=== PATIENT | female | born 1950 | race Caucasian/White ===

== ENCOUNTER → 2018-02-26 | Day surgery (SDC) | payer BC ==
[~2018-02-26] MED LIST: FENTANYL CITRATE/PF 100MCG/2 ML INJ ONE; MIDAZOLAM HCL 2 MG/2 ML VIAL ONE; OR PHACO EYE KIT ONE; PREOP PHACO EYE KIT ONE; SYNTHROID100 MCG PO; SYNTHROID112 MCG PO
--- OUTSIDE RECORDS SUMMARY | 2018-02-26 14:47 | XMS REPORT | Clinical Summary ---
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 Name Role Phone Ky Shankar MD PCP Allergies Active Allergy Reactions Severity Noted Date Comments Aminoglycosides Hives, Rash Low 02/22/2017 Clindamycin Hcl Rash Low 10/17/2016 Clindamycin 03/09/2017 ALL Clindamycin FAMILY Codeine 10/17/2016 Latex Rash Medium 12/27/2016 Levofloxacin Hives, Rash Low 06/19/2017 Levothyroxine 03/09/2017 CAN ONLY TAKE SYNTHROID no generic Macrolide Antibiotics Hives, Rash Low 02/22/2017 macrolide family Other Other (See Comments) 02/22/2017 Pt sts allergic to nuclear medicine contrast only, reaction: small hard bumps all over her body Tetracyclines 06/19/2017 Tetracyclines family Current Medications Prescription Sig. Disp. Refills Start End Date Status Date sitaGLIPtin () 100 Take 100 mg by mouth Active MG tablet daily. levothyroxine (SYNTHROID) Take 100 mcg by mouth Active 100 mcg tablet daily. Name brand only levothyroxine (SYNTHROID) Take 112 mcg by mouth Active 112 mcg tablet every morning. Name brand only azelastine-fluticasone 1 spray by Each Nare Active (DYMISTA) 137-50 route 2 (two) times a mcg/spray day. spray,non-aerosol nystatin (MYCOSTATIN) SWISH AND SWALLOW SIX (6) 0 09/26/19 Active 100,000 unit/mL MLS BY MOUTH FOUR TIMES A 18 suspension DAY UNTIL ALL TAKEN. levothyroxine (SYNTHROID, Take 112 mcg by mouth 06/19/19 Discontin LEVOXYL) 112 mcg tablet every other day. 18 ued levothyroxine (SYNTHROID, Take 100 mcg by mouth 06/19/19 Discontin LEVOXYL) 100 mcg tablet every other day. 18 ued UNABLE TO FIND Med Name:azelastime nasal 06/21/19 Discontin spray 18 ued cefdinir (OMNICEF) 300 MG Take 1 capsule (300 mg 10 capsule 0 03/08/20 03/13/20 capsule total) by mouth 2 (two) 17 17 times a day for 5 days. ondansetron (ZOFRAN, Take 1 tablet (8 mg 20 tablet 1 03/09/20 04/08/20 HYDROCHLORIDE,) 8 MG total) by mouth every 8 17 17 tabletIndications: (eight) hours as needed Malignant neoplasm of for nausea or vomiting upper-outer quadrant of for up to 30 days. right breast in female, estrogen receptor positive (HCC) prochlorperazine Take 1 tablet (10 mg 30 tablet 1 03/09/20 04/08/20 (COMPAZINE) 10 MG total) by mouth every 6 17 17 tabletIndications: (six) hours as needed for Malignant neoplasm of nausea or vomiting for up upper-outer quadrant of to 30 days. right breast in female, estrogen receptor positive (HCC) lidocaine-prilocaine Apply to port 1 hour 1 each 0 03/09/20 08/08/19 Discontin (EMLA) 2.5-2.5 % prior to chemo. 17 18 ued creamIndications: Malignant neoplasm of upper-outer quadrant of right breast in female, estrogen receptor positive (HCC) miscellaneous medical Wear wig daily 1 each 0 03/27/20 03/27/20 Discontin supply miscIndications: 17 17 ued Malignant neoplasm of female breast, unspecified estrogen receptor status, unspecified laterality, unspecified site of breast (HCC) diphenoxylate-atropine Take 1-2 tabs every 6 30 tablet 2 03/27/20 04/03/20 (LOMOTIL) 2.5-0.025 mg hours PRN for diarrhea 17 17 per tablet miscellaneous medical Wear wig daily 1 each 0 03/27/20 04/02/20 Discontin supply miscIndications: 17 17 ued Malignant neoplasm of female breast, unspecified estrogen receptor status, unspecified laterality, unspecified site of breast (HCC) acetaminophen-codeine Take 1 tablet by mouth 20 tablet 0 04/02/20 04/12/20 (TYLENOL WITH CODEINE #3) every 4 (four) hours as 17 17 300-30 mg per tablet needed for moderate pain for up to 10 days. lidocaine Insert 1 application into 1 Tube 11 04/25/20 05/09/20 HCl-hydrocortison ac the rectum 2 (two) times 17 17 3-0.5 % creamIndications: a day as needed (rectal Proctalgia pain) for up to 14 days. omeprazole (PriLOSEC) 40 Take 1 capsule (40 mg 30 capsule 11 04/25/20 06/19/19 Discontin MG capsuleIndications: total) by mouth daily. 17 18 ued Epigastric pain amoxicillin (AMOXIL) 500 02/28/20 05/24/19 Discontin MG capsule 17 18 ued lidocaine-prilocaine 03/28/20 05/24/19 Discontin (EMLA) 2.5-2.5 % cream 17 18 ued hydrocortisone Insert into the rectum 2 30 g 1 05/16/19 06/15/19 (ANUSOL-HC) 2.5 % rectal (two) times a day for 30 18 18 creamIndications: Rectal days. Apply to rectal irritation area 2 time a day. oseltamivir (TAMIFLU) 75 Take 1 capsule (75 mg 10 capsule 0 05/18/19 05/24/19 Discontin MG capsuleIndications: total) by mouth 2 (two) 18 18 ued Flu times a day for 5 days. azithromycin (ZITHROMAX Take 2 tablets the first 6 tablet 0 06/15/19 06/19/19 Discontin Z-ERA) 250 MG day, then 1 tablet daily 18 18 ued tabletIndications: for 4 days. Bronchitis traMADol (ULTRAM) 50 mg Take 1 tablet (50 mg 30 tablet 0 06/22/19 07/02/19 tablet total) by mouth every 6 18 18 (six) hours as needed for moderate pain for up to 10 days. acetaminophen (TYLENOL) Take 2 tablets (1,000 mg 180 tablet 0 07/08/19 07/08/19 Discontin 500 MG tablet total) by mouth every 8 18 18 ued (eight) hours for 30 days. gabapentin (NEURONTIN) Take 1 capsule (300 mg 90 capsule 0 07/08/19 07/08/19 Discontin 300 mg capsule total) by mouth 3 (three) 18 18 ued times a day for 30 days. acetaminophen (TYLENOL) Take 2 tablets (1,000 mg 30 tablet 0 07/08/19 07/14/19 500 MG tablet total) by mouth every 8 18 18 (eight) hours for 5 days. gabapentin (NEURONTIN) Take 1 capsule (300 mg 21 capsule 0 07/08/19 07/16/19 300 mg capsule total) by mouth 3 (three) 18 18 times a day for 7 days. nitroglycerin 0.4 % (w/w) Insert 375 mg into the 30 g 0 08/08/19 08/29/19 ointmentIndications: Anal rectum 2 (two) times a 18 18 fissure day for 21 days. anastrozole (ARIMIDEX) 1 Take 1 tablet (1 mg 30 tablet 3 12/04/19 01/03/20 mg chemo tablet total) by mouth daily for 18 18 30 days. Active Problems Problem Noted Date Breast cancer screening 12/26/2017 Heart failure, ACC/AHA stage A 05/24/2017 Mass of lung 03/16/2017 Smoking 02/15/2017 Malignant neoplasm of upper-outer quadrant of right female breast (HCC) 12/27/2016 Mass of right side of neck 12/19/2016 Golfer's elbow 11/15/2016 Lateral epicondylitis of right elbow 03/22/2016 Ganglion cyst of wrist 03/22/2016 Primary osteoarthritis of left wrist 03/22/2016 Lung cancer (HCC) Encounters Date Type Specialty Care Team Description 02/12/2018 Oncology Oncology Susi Connors, LEO Survivorship 02/06/2018 Telephone Oncology Daniel Cullen MD 01/11/2018 Telephone Oncology Daniel Cullen MD 12/27/2017 Oncology Radiology Aminta Lozada, LEO Survivorship 12/26/2017 Office Visit General Surgery Elma Hernandes, Malignant neoplasm of MD upper-outer quadrant of right breast in female, estrogen receptor positive (Primary Dx); Breast cancer screening 12/26/2017 [facility] Radiology Elma Hernandes, Malignant neoplasm of Encounter upper-outer quadrant of right breast in female, estrogen receptor positive 12/26/2017 [facility] Radiology Elma Hernandes, Malignant neoplasm of Encounter MD upper-outer quadrant of right breast in female, estrogen receptor positive 12/07/2017 Orders Only Oncology Carol Ga MD Osteoporosis screening (Primary Dx) 12/04/2017 [facility] Radiation Oncology Dayne Ya MD Encounter 12/03/2017 Office Visit Oncology Carol Ga MD Breast cancer, stage 2, right (Primary Dx) 12/03/2017 Oncology Oncology Susi Connors, RN Survivorship 11/30/2017 Office Visit Oncology Daniel Cullen Malignant neoplasm of MD lower lobe of right lung (Primary Dx) 11/30/2017 Hospital Radiology Daniel Cullen, Cancer of lower lobe of Encounter MD right lung 11/30/2017 Orders Only Oncology Amena Moralez MA Cancer of lower lobe of right lung (Primary Dx) 11/12/2017 Orders Only Oncology Amena Moralez MA Cancer of lower lobe of right lung (Primary Dx) 11/09/2017 Telephone Oncology Daniel Cullen MD 11/05/2017 Procedure visit General Surgery Elma Hernandes, Malignant neoplasm of MD upper-outer quadrant of right breast in female, estrogen receptor positive (Primary Dx) 11/05/2017 Transcribe Access Elma Hernandes, Malignant neoplasm of Orders MD upper-outer quadrant of right breast in female, estrogen receptor positive (Primary Dx) 10/29/2017 Telephone General Surgery Martha Latif RN 10/29/2017 Documentation Oncology Neisha Tenorio RN 10/25/2017 Telephone Oncology Daniel Cullen MD 10/22/2017 [facility] Radiology Carol Ga MD Swelling in chest Encounter 10/19/2017 Telephone General Surgery Martha Latif, LEO 10/17/2017 Orders Only Oncology Carol Ga MD Neck pain (Primary Dx) 10/16/2017 Office Visit Oncology Carol Ga MD Swelling in chest (Primary Dx) 10/16/2017 Orders Only Oncology Cedric Dial, PharmD 10/12/2017 [facility] Radiation Oncology Dayne Ya MD Encounter 10/10/2017 Infusion Oncology Carol Ga MD Breast cancer, stage 2, right (Primary Dx); Malignant neoplasm of upper-outer quadrant of right breast in female, estrogen receptor positive 10/10/2017 Orders Only Oncology Carol Ga MD 10/09/2017 Office Visit Oncology Daniel Cullen Primary malignant MD neoplasm of upper outer quadrant of right breast (Primary Dx) 10/05/2017 Telephone Oncology Daniel Cullen MD 10/03/2017 Orders Only Oncology Charmaine Maurer, PharmD 10/02/2017 Documentation Oncology Neisha Tenorio RN 09/26/2017 Office Visit Oncology Carol Ga MD Malignant neoplasm of upper-outer quadrant of right breast in female, estrogen receptor positive (Primary Dx) 09/26/2017 Orders Only Oncology Carol Ga MD Breast cancer, stage 2, right; Malignant neoplasm of upper-outer quadrant of right breast in female, estrogen receptor positive 09/26/2017 Orders Only Oncology Charmaine Maurer, PharmD 09/25/2017 Office Visit Cardiology Deanne Santoro MD Heart failure, ACC/AHA stage A (Primary Dx); Breast cancer, stage 2, right 09/21/2017 Orders Only Cardiology Azra Shay MA Malignant neoplasm of upper-outer quadrant of right breast in female, estrogen receptor positive (Primary Dx); Smoking; Heart failure, ACC/AHA stage A 09/19/2017 Telephone Oncology Daniel Cullen MD 09/18/2017 Emergency Emergency Medicine Darwin Rodas MD Problem with vascular access (Primary Dx) 09/18/2017 Orders Only Oncology Neisha Tenorio RN Malignant neoplasm of female breast, unspecified estrogen receptor status, unspecified laterality, unspecified site of breast (Primary Dx) 09/18/2017 Documentation Oncology Neisha Tenorio RN 09/17/2017 Office Visit General Surgery Elma Hernandes, Malignant neoplasm of MD upper-outer quadrant of right breast in female, estrogen receptor positive (Primary Dx) 09/12/2017 Infusion Oncology Carol Ga MD Breast cancer, stage 2, right (Primary Dx); Malignant neoplasm of upper-outer quadrant of right breast in female, estrogen receptor positive 09/12/2017 Oncology Oncology Susi Connors RN Survivorship 09/11/2017 [facility] Radiation Oncology Dayne Ya MD - Encounter 09/12/2017 09/10/2017 Telephone Gastroenterology Chantal Devine LVN 09/06/2017 Documentation Oncology Neisha Tenorio, LEO 09/04/2017 Office Visit Oncology Carol Ga MD Encounter for antineoplastic chemotherapy (Primary Dx); Malignant neoplasm of upper-outer quadrant of right breast in female, estrogen receptor positive 09/04/2017 Orders Only Oncology Carol Ga MD Breast cancer, stage 2, right; Malignant neoplasm of upper-outer quadrant of right breast in female, estrogen receptor positive 08/21/2017 Hospital Radiation Oncology Dayne Ya MD - Encounter 08/22/2017 08/14/2017 Telephone Oncology Daniel Cullen MD 08/07/2017 Office Visit Gastroenterology Micah Love MD Proctalgia (Primary Dx); Anal fissure 08/07/2017 Office Visit Cardiothoracic Surgery Camilo Berg MD Surgery follow-up examination (Primary Dx) 08/07/2017 Office Visit Oncology Daniel Cullen, Primary lung cancer, MD right (Primary Dx) 07/20/2017 Office Visit Cardiothoracic Surgery Ainsley Charles, 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 (Primary Dx) 07/16/2017 Telephone Cardiothoracic Surgery Sary Angel MA 07/12/2017 Telephone Oncology Susi Connors RN 07/06/2017 Hospital Cardiology Camilo Berg MD Malignant neoplasm of - Encounter lower lobe, right 07/08/2017 bronchus or lung (CODE) 07/06/2017 Anesthesia Cardiothoracic Surgery Siobhan Cavazos Event 07/06/2017 Procedure Pass Cardiothoracic Surgery 07/06/2017 Surgery Cardiothoracic Surgery Camilo Berg MD ROBOTIC ASSISTED THORACOSCOPIC RIGHT LOWER LOBE LOBECTOMY, MEDIASTINAL LYMPH NODE DISSECTION 07/03/2017 Lab Lab Camilo Berg MD Malignant neoplasm of lung, unspecified laterality, unspecified part of lung; Pre-operative laboratory examination 07/03/2017 Office Visit Oncology Carol Ga MD Breast cancer, stage 2, right (Primary Dx) 07/03/2017 Transcribe Cardiothoracic Surgery Camilo Berg MD Malignant neoplasm of Orders lung, unspecified laterality, unspecified part of lung (Primary Dx); Pre-operative laboratory examination 06/26/2017 Office Visit General Surgery Elma Hernandes, Malignant neoplasm of MD upper-outer quadrant of right breast in female, estrogen receptor positive (Primary Dx) 06/26/2017 Telephone Oncology Susi Connors RN 06/22/2017 [facility] Radiology Elma Hernandes, Breast cancer, stage 2, Encounter MD right 06/22/2017 Hospital General Surgery Elma Hernandes, Mass of right breast; Encounter MD Breast cancer, stage 2, right 06/22/2017 Procedure Pass General Surgery 06/22/2017 Surgery General Surgery Elma Hernandes, Central Mastectomy RIGHT MD 06/21/2017 Pre-Admit Pre-Admission Testing Elma Hernandes, Malignant neoplasm of Testing MD lower lobe of right lung; Appointment Pre-op testing 06/21/2017 Anesthesia General Surgery Fadia Greenberg, SALT GRINDER-C Event 06/19/2017 [facility] Procedural Cardiology Deanne Santoro MD Mass of lung; Encounter Malignant neoplasm of lower lobe of right lung; Mass of right side of neck; Malignant neoplasm of upper-outer quadrant of right breast in female, estrogen receptor positive; Heart failure, ACC/AHA stage A; Smoking 06/19/2017 Office Visit Cardiothoracic Surgery Camilo Berg MD Malignant neoplasm of lower lobe of right lung (Primary Dx); Pre-op testing 06/15/2017 Orders Only Oncology Nalini Walters RN Bronchitis (Primary Dx) 06/15/2017 Telephone Oncology Daniel Cullen MD 06/14/2017 Orders Only Cardiology Azra Shay MA Mass of lung (Primary Dx); Malignant neoplasm of lower lobe of right lung; Mass of right side of neck; Malignant neoplasm of upper-outer quadrant of right breast in female, estrogen receptor positive; Heart failure, ACC/AHA stage A; Smoking 06/13/2017 Orders Only Cardiothoracic Surgery Morena Baig MD 06/12/2017 [facility] Radiation Oncology Dayne Ya MD - Encounter 06/13/2017 06/12/2017 Telephone Oncology Daniel Cullen MD 06/12/2017 Orders Only Cardiology Azra Shay MA Mass of lung (Primary Dx); Malignant neoplasm of lower lobe of right lung; Smoking; Heart failure, ACC/AHA stage A 06/11/2017 Prep for General Surgery Elma Hernandes, Breast cancer, stage 2, Surgery right (Primary Dx) 06/06/2017 Telephone Oncology Daniel Cullen MD 06/05/2017 Office Visit Cardiothoracic Surgery Camilo Berg MD Malignant neoplasm of lower lobe of right lung (Primary Dx) 06/04/2017 Office Visit General Surgery Elma Hernandes, Malignant neoplasm of MD upper-outer quadrant of right breast in female, estrogen receptor positive (Primary Dx) 06/04/2017 Infusion Oncology Carol Ga MD Malignant neoplasm of upper-outer quadrant of right breast in female, estrogen receptor positive (Primary Dx) 06/01/2017 Nurse Only Oncology Carol Ga MD Malignant neoplasm of upper-outer quadrant of right breast in female, estrogen receptor positive (Primary Dx) 05/28/2017 Office Visit Oncology Daniel Cullen Malignant neoplasm of MD lower lobe of right lung (Primary Dx) 05/28/2017 Nurse Only Oncology Carol Ga MD Malignant neoplasm of Daniel Cullen, upper-outer quadrant of MD right breast in female, estrogen receptor positive (Primary Dx) 05/25/2017 Telephone Cardiothoracic Surgery Aruna Cano MA 05/24/2017 Office Visit Cardiology Deanne Santoro MD Heart failure, ACC/AHA stage A (Primary Dx); Mass of lung; Smoking; Malignant neoplasm of upper-outer quadrant of right breast in female, estrogen receptor positive; Malignant neoplasm of breast in female, estrogen receptor negative, unspecified laterality, unspecified site of breast 05/24/2017 Orders Only General Surgery Elma Hernandes, Breast cancer, stage 2, MD unspecified laterality (Primary Dx) 05/23/2017 Telephone Oncology Daniel Cullen MD 05/22/2017 Office Visit Oncology Carol Ga MD Malignant neoplasm of upper-outer quadrant of right breast in female, estrogen receptor negative (Primary Dx) 05/22/2017 Infusion Oncology Carol Ga MD Malignant neoplasm of upper-outer quadrant of right breast in female, estrogen receptor positive (Primary Dx) 05/22/2017 Orders Only Oncology Carol Ga MD Malignant neoplasm of upper-outer quadrant of right breast in female, estrogen receptor positive 05/18/2017 Orders Only Oncology Nalini Walters RN Flu (Primary Dx) 05/18/2017 Telephone Oncology Daniel Cullen MD 05/16/2017 Orders Only Oncology Nalini Walters RN Rectal irritation (Primary Dx) 05/11/2017 [facility] Radiology Daniel Cullen, Malignant neoplasm of Encounter MD nipple of right female breast 05/10/2017 Telephone Oncology Daniel Cullen MD 05/10/2017 Transcribe Access Daniel Cullen, Malignant neoplasm of Orders MD nipple of right female breast (Primary Dx) 05/10/2017 Orders Only Oncology Amena Moralez MA 05/09/2017 Office Visit Oncology Daniel Cullen Malignant neoplasm of MD lower lobe of right lung (Primary Dx) 05/04/2017 [facility] Radiology Daniel Cullen, Squamous cell carcinoma Encounter MD of bronchus in right lower lobe 05/04/2017 Telephone Oncology Daniel Cullen MD 05/02/2017 Nurse Only Oncology Caorl Ga MD Malignant neoplasm of upper-outer quadrant of right breast in female, estrogen receptor positive (Primary Dx) 05/02/2017 Telephone Oncology Daniel Cullen MD 05/01/2017 Office Visit Oncology Carol Ga MD Malignant neoplasm of upper-outer quadrant of right breast in female, estrogen receptor negative (Primary Dx) 05/01/2017 Infusion Oncology Carol Ga MD Malignant neoplasm of upper-outer quadrant of right breast in female, estrogen receptor positive (Primary Dx); Malignant neoplasm of upper-outer quadrant of right breast in female, estrogen receptor negative 05/01/2017 Orders Only Oncology Amena Moralez MA Squamous cell carcinoma of bronchus in right lower lobe (Primary Dx) 05/01/2017 Orders Only Oncology Lauren Mata MA 05/01/2017 Orders Only Oncology Carol Ga MD Malignant neoplasm of upper-outer quadrant of right breast in female, estrogen receptor positive 04/25/2017 Office Visit Gastroenterology Micah Love MD Proctalgia (Primary Dx); Epigastric pain 04/17/2017 Documentation Oncology Neisha Tenorio RN 04/11/2017 Telephone Oncology Susi Connors, LEO 04/10/2017 Office Visit Oncology Daniel Cullen, Malignant neoplasm of MD lower lobe of right lung (Primary Dx) 04/10/2017 Infusion Oncology Carol Ga MD Malignant neoplasm of Tori Guillen RN upper-outer quadrant of right breast in female, estrogen receptor positive (Primary Dx) 04/10/2017 Orders Only Oncology Amena Moralez MA Malignant neoplasm involving both nipple and areola of right breast in female, unspecified estrogen receptor status (Primary Dx) 04/10/2017 Oncology Oncology Susi Connors, RN Survivorship 04/09/2017 Documentation Oncology Neisha Tenorio RN 04/09/2017 Orders Only Oncology Reinaldo Cheema, PharmD 04/09/2017 Orders Only Oncology Carol Ga MD 04/09/2017 Orders Only Oncology Carol Ga MD Malignant neoplasm of upper-outer quadrant of right breast in female, estrogen receptor positive 04/03/2017 Documentation Oncology Neisha Tenorio RN 04/02/2017 [facility] General Surgery Elma Hernandes, Encounter 04/02/2017 Procedure Pass General Surgery 04/02/2017 Surgery General Surgery Elma Hernandes, INSERTION, IMPLANTABLE MD VENOUS ACCESS DEVICE WITH RESERVOIR 04/01/2017 Anesthesia General Surgery Iftikhar Parr, Gray AYALA 03/29/2017 Orders Only Oncology Carmelina Lund, PharmD 03/29/2017 Orders Only Oncology Carol Ga MD 03/27/2017 Office Visit Oncology Daniel Cullen, Primary lung cancer, MD right (Primary Dx) 03/27/2017 Hospital Radiology Carol Ga MD Malignant neoplasm of Encounter female breast, unspecified estrogen receptor status, unspecified laterality, unspecified site of breast 03/27/2017 Office Visit Oncology Carol Ga MD Malignant neoplasm of female breast, unspecified estrogen receptor status, unspecified laterality, unspecified site of breast (Primary Dx) 03/27/2017 Orders Only Oncology Neisha Tenorio RN 03/23/2017 Prep for General Surgery Elma Hernandes, Malignant neoplasm of Surgery MD breast in female, estrogen receptor negative, unspecified laterality, unspecified site of breast (Primary Dx) 03/23/2017 Orders Only General Surgery Elma Hernandes MD 03/23/2017 Procedure Pass General Surgery 03/21/2017 Telephone Oncology Carol Ga MD 03/16/2017 Procedure Pass Radiology 03/16/2017 Orders Only Oncology Carol Ga MD Malignant neoplasm of female breast, unspecified estrogen receptor status, unspecified laterality, unspecified site of breast (Primary Dx) 03/16/2017 Documentation Oncology Neisha Tenorio, LEO 03/16/2017 Telephone General Surgery Martha Latif RN 03/13/2017 Office Visit Oncology Carol Ga MD Malignant neoplasm of upper-outer quadrant of right breast in female, estrogen receptor negative (Primary Dx) 03/13/2017 Oncology Oncology Susi Connors, LEO Survivorship 03/09/2017 Prep for General Surgery Elma Hernandes, Malignant neoplasm of Surgery MD upper-outer quadrant of right breast in female, estrogen receptor negative (Primary Dx) 03/09/2017 Orders Only Oncology Neisha Tenorio RN 03/09/2017 Telephone Oncology Carol Ga MD 03/09/2017 Orders Only Oncology Carmelina Lund, Amol Malignant neoplasm of upper-outer quadrant of right breast in female, estrogen receptor positive (Primary Dx) 03/08/2017 Office Visit Oncology Carol Ga MD Malignant neoplasm of upper-outer quadrant of right breast in female, estrogen receptor positive (Primary Dx) 02/26/2017 Telephone Oncology Carol Ga MD after 02/25/2017 Family History Medical History Relation Name Comments No Known Problems Brother No Known Problems Mother Relation Name Status Comments Brother Alive Father asbestos exposure Mother Social History Tobacco Use Types Packs/Day Years Used Date Former Smoker Cigarettes, Electronic 1 50 Quit: 06/07/2017 Cigarettes Smokeless Tobacco: Never Used Tobacco Cessation: Counseling Given: Yes Comments: pt trying to wean from cigarrettes and alternating with e cigarettes Alcohol Use Drinks/Week oz/Week Comments No Sex Assigned at Date Recorded Not on file Last Filed Vital Signs Vital Sign Reading Time Taken Blood Pressure 87/60 12/26/2017 2:09 PM CDT Pulse 85 12/26/2017 2:09 PM CDT Temperature 37 C (98.6 F) 12/26/2017 2:09 PM CDT Respiratory Rate 15 12/26/2017 2:09 PM CDT Oxygen Saturation 99% 12/26/2017 2:09 PM CDT Inhaled Oxygen - - Concentration Weight 57.2 kg (126 lb) 12/26/2017 2:09 PM CDT Height 157.5 cm (5' 2") 12/26/2017 2:09 PM CDT Body Mass Index 23.05 12/26/2017 2:09 PM CDT Plan of Treatment Date Type Specialty Care Team Description 03/21/2018 Appointment Radiology Daniel Cullen MD [address] [id number] 03/25/2018 Office Visit Oncology Daniel Cullen MD [address] [place] [id number] 01/08/2019 Office Visit [place] [address] [facility] [address] [place] [address] [id number] Health Maintenance Due Date Last Done Comments SHINGRIX VACCINE (#1) 2000 ZOSTER VACCINE 2010 PNEUMOCOCCAL 09/10/2015 POLYSACCHARIDE VACCINE AGE 65 AND OVER PNEUMOCOCCAL-13 09/10/2015 INFLUENZA VACCINE 12/12/2017 BREAST CANCER SCREENING 12/27/2019 12/26/2017, 12/26/2017, 12/19/2016, Additional history exists COLON CANCER SCREENING 10/31/2020 11/01/2015 Implants Implanted Type Area Senior Attorney Device Expiration Model / Identifier Date Serial / Lot Port [id number] Smart Port W/ Dtchd Implantabl N/A: N/A [employer] 11/11/2019 [id number] 0.4ml 6.6fr 55cm 1.4x2.2mm - [employer] / [id number] Ports or / Implanted: Qty: 1 on 04/02/2017 by [employer] [id number] Elma Hernandes MD s Procedures Procedure Name Priority Date/Time Associated Diagnosis Comments MAMMO DIAGNOSTIC W CAD Routine 12/26/2017 Malignant neoplasm of Results for this BILATERAL 2:56 PM CDT upper-outer quadrant of procedure are in the right breast in female, results section. estrogen receptor positive US BREAST COMPLETE Routine 12/26/2017 Malignant neoplasm of Results for this BILATERAL 1:45 PM CDT upper-outer quadrant of procedure are in the right breast in female, results section. estrogen receptor positive CT CHEST W CONTRAST Routine 11/30/2017 Cancer of lower lobe of Results for this 12:13 PM CDT right lung procedure are in the results section. ESTIMATED GFR Routine 11/30/2017 Results for this 11:13 AM CDT procedure are in the results section. POC CREATININE Routine 11/30/2017 Results for this 11:13 AM CDT procedure are in the results section. IR PORT EVALUATION Routine 10/22/2017 Swelling in chest Results for this 11:51 AM CDT procedure are in the results section. POC CREATININE Routine 10/22/2017 Results for this 10:26 AM CDT procedure are in the results section. ECHOCARDIOGRAM 2D Routine 09/25/2017 Results for this COMPLETE W MMODE SPECTRAL 2:46 PM CDT procedure are in the COLOR DOPPLER ([id number]) results section. US DUPLEX VENOUS UPPER STAT 09/18/2017 Results for this EXTREMITY LEFT 10:08 PM CDT procedure are in the results section. TROPONIN, I-STAT Timed 09/18/2017 Results for this 10:05 PM CDT procedure are in the results section. LACTIC ACID LEVEL, SEPSIS Timed 09/18/2017 Results for this - NOW AND REPEAT 2X EVERY 10:05 PM CDT procedure are in the 3 HOURS results section. XR CHEST 2 VW STAT 09/18/2017 Results for this 7:09 PM CDT procedure are in the results section. ZZESTIMATED GFR STAT 09/18/2017 Results for this 6:07 PM CDT procedure are in the results section. B NATRIURETIC PEPTIDE STAT 09/18/2017 Results for this 6:07 PM CDT procedure are in the results section. TROPONIN, I-STAT STAT 09/18/2017 Results for this 6:07 PM CDT procedure are in the results section. LACTIC ACID LEVEL, SEPSIS STAT 09/18/2017 Results for this - NOW AND REPEAT 2X EVERY 6:07 PM CDT procedure are in the 3 HOURS results section. HC COMPLETE BLD COUNT STAT 09/18/2017 Results for this W/AUTO DIFF 6:07 PM CDT procedure are in the results section. COMPREHENSIVE METABOLIC STAT 09/18/2017 Results for this PANEL 6:07 PM CDT procedure are in the results section. BLOOD CULTURE, AEROBIC & Routine 09/18/2017 Results for this ANAEROBIC 6:07 PM CDT procedure are in the results section. XR CHEST 1 VW PORTABLE STAT 07/08/2017 Results for this 2:21 PM CLOTHES SEPARATOR procedure are in the results section. XR CHEST 1 VW PORTABLE Routine 07/08/2017 Results for this 12:00 PM CLOTHES SEPARATOR procedure are in the results section. XR CHEST 1 VW PORTABLE Routine 07/08/2017 Results for this 8:20 AM CLOTHES SEPARATOR procedure are in the results section. ZZESTIMATED GFR Routine 07/08/2017 Results for this 8:15 AM CLOTHES SEPARATOR procedure are in the results section. CBC HEMOGRAM Routine 07/08/2017 Results for this 8:15 AM CLOTHES SEPARATOR procedure are in the results section. BASIC METABOLIC PANEL Routine 07/08/2017 Results for this 8:15 AM CLOTHES SEPARATOR procedure are in the results section. XR CHEST 1 VW PORTABLE Routine 07/07/2017 Results for this 10:02 AM CLOTHES SEPARATOR procedure are in the results section. HC COMPLETE BLD COUNT Routine 07/07/2017 Results for this W/AUTO DIFF 5:35 AM CLOTHES SEPARATOR procedure are in the results section. ZZESTIMATED GFR Routine 07/07/2017 Results for this 4:00 AM CLOTHES SEPARATOR procedure are in the results section. BASIC METABOLIC PANEL Routine 07/07/2017 Results for this 4:00 AM CLOTHES SEPARATOR procedure are in the results section. XR CHEST 1 VW PORTABLE STAT 07/06/2017 Results for this 2:33 PM CLOTHES SEPARATOR procedure are in the results section. ZZESTIMATED GFR STAT 07/06/2017 Results for this 1:12 PM CLOTHES SEPARATOR procedure are in the results section. BASIC METABOLIC PANEL STAT 07/06/2017 Results for this 1:12 PM CLOTHES SEPARATOR procedure are in the results section. HC COMPLETE BLD COUNT STAT 07/06/2017 Results for this W/AUTO DIFF 1:12 PM CLOTHES SEPARATOR procedure are in the results section. SURGICAL PATHOLOGY Routine 07/06/2017 Results for this REQUEST 11:42 AM CLOTHES SEPARATOR procedure are in the results section. SURGICAL PATHOLOGY Routine 07/06/2017 Results for this REQUEST 11:42 AM CLOTHES SEPARATOR procedure are in the results section. ARTERIAL BLOOD GAS, STAT 07/06/2017 Results for this CORRECTED 11:00 AM CLOTHES SEPARATOR procedure are in the results section. SODIUM LEVEL, SYRINGE STAT 07/06/2017 Results for this 11:00 AM CLOTHES SEPARATOR procedure are in the results section. HEMOGLOBIN, SYRINGE STAT 07/06/2017 Results for this 11:00 AM CLOTHES SEPARATOR procedure are in the results section. POTASSIUM, SYRINGE STAT 07/06/2017 Results for this 11:00 AM CLOTHES SEPARATOR procedure are in the results section. GLUCOSE LEVEL, SYRINGE STAT 07/06/2017 Results for this 11:00 AM CLOTHES SEPARATOR procedure are in the results section. IONIZED CALCIUM, ARTERIAL STAT 07/06/2017 Results for this 11:00 AM CLOTHES SEPARATOR procedure are in the results section. SURGICAL PATHOLOGY Routine 07/06/2017 Results for this REQUEST 10:42 AM CLOTHES SEPARATOR procedure are in the results section. SURGICAL PATHOLOGY Routine 07/06/2017 Results for this REQUEST 10:42 AM CLOTHES SEPARATOR procedure are in the results section. MISCELLANEOUS REFERRAL Routine 07/06/2017 Results for this TEST 10:42 AM CLOTHES SEPARATOR procedure are in the results section. GLUCOSE LEVEL, SYRINGE STAT 07/06/2017 Results for this 10:00 AM CLOTHES SEPARATOR procedure are in the results section. IONIZED CALCIUM, ARTERIAL STAT 07/06/2017 Results for this 10:00 AM CLOTHES SEPARATOR procedure are in the results section. HEMOGLOBIN, SYRINGE STAT 07/06/2017 Results for this 10:00 AM CLOTHES SEPARATOR procedure are in the results section. POTASSIUM, SYRINGE STAT 07/06/2017 Results for this 10:00 AM CLOTHES SEPARATOR procedure are in the results section. SODIUM LEVEL, SYRINGE STAT 07/06/2017 Results for this 10:00 AM CLOTHES SEPARATOR procedure are in the results section. ARTERIAL BLOOD GAS STAT 07/06/2017 Results for this 10:00 AM CLOTHES SEPARATOR procedure are in the results section. IONIZED CALCIUM, ARTERIAL STAT 07/06/2017 Results for this 8:55 AM CLOTHES SEPARATOR procedure are in the results section. GLUCOSE LEVEL, SYRINGE STAT 07/06/2017 Results for this 8:55 AM CLOTHES SEPARATOR procedure are in the results section. HEMOGLOBIN, SYRINGE STAT 07/06/2017 Results for this 8:55 AM CLOTHES SEPARATOR procedure are in the results section. POTASSIUM, SYRINGE STAT 07/06/2017 Results for this 8:55 AM CLOTHES SEPARATOR procedure are in the results section. ARTERIAL BLOOD GAS STAT 07/06/2017 Results for this 8:55 AM CLOTHES SEPARATOR procedure are in the results section. SODIUM LEVEL, SYRINGE STAT 07/06/2017 Results for this 8:55 AM CLOTHES SEPARATOR procedure are in the results section. SD AN ELECTIVE Routine 07/06/2017 ENDOTRACHEAL AIRWAY 8:39 AM CLOTHES SEPARATOR Procedure Note - Siobhan Cavazos - 07/06/2017 8:39 AM CLOTHES SEPARATOR Airway Performed by: ALYX CAMERON Authorized by: ALYX CAMERON Location: OR Urgency: Elective Difficult Airway: No Anesthesio logist: ALYX CAMERON Resident/C RNA/AA: INDRA CABRERA Performed by: resident/C RNA/AA Preoxygena amanda with 100% O2: Yes Mask Ventilatio n: Easy mask Final Airway Type: Endotrache al airway Tube type: UNIVent Cuffed: Yes Technique Used: Video laryngosco py Devices/Me thods Used in Placement: Intubatin g stylet, fiberoptic and bronchial blockers Insertion Site: Oral Laryngosco pe Blade/Vide olaryngosc ope Blade Size: 3 Cuff at minimum occlusion pressure: Yes Measured from: Lips ETT to Lips (cm): 23 Placement Verified by: CO2 detection, direct visualizat ion and fiber optic visualizat ion Laryngosco pic view: Grade I - full view of glottis Rapid Sequence Induction (RSI): No Modified RSI: No Number of Attempts at Approach: 1 Hx of narrowing airway, electively chose 7.5 unitvent and glidescope assist; ETT advanced through vocal folds without difficulty , slight resistance through trachea, but no force needed. ARTERIAL LINE Routine 07/06/2017 8:18 AM CLOTHES SEPARATOR Procedure Note - Siobhan Cavazos - 07/06/2017 8:18 AM CLOTHES SEPARATOR Arterial line Performed by: ALYX CAMERON Authorized by: ALYX CAMERON Patient Location: OR Start Time: 07/06/2017 7:40 AM End Time: 07/06/2017 7:43 AM Staff: Anesthesio logist: ALYX CAMERON Other Staff: SIOBHAN CAVAZOS Performed by: Other staff Pre-proced ure: patient identified , IV checked, site and side verified, risks and benefits discussed, procedure verified, surgical consent complete, patient position confirmed, monitors and equipment checked and pre-op evaluation complete MSBT: antiseptic used, hand hygiene performed and cap/gown used by other personnel TIme Out Performed: 07/06/2017 7:40 AM Indication s: Indication s: multiple ABGs Anesthesia : Anesthesia : General Procedure Details: Arterial Line placement: Placed post induction Line placement site: Radial Line placement side: Right Arterial line gauge: 20 G Number of attempts: 1 Ultrasound guidance used: Yes Post-proc edure: Post-proce dure: Sterile dressing applied Post procedure circulatio n, sensation, movement: Normal Patient tolerance: Patient tolerated the procedure well with no immediate complicati ons GLUCOSE LEVEL, SYRINGE STAT 07/06/2017 Results for this 7:48 AM CLOTHES SEPARATOR procedure are in the results section. HEMOGLOBIN, SYRINGE STAT 07/06/2017 Results for this 7:48 AM CLOTHES SEPARATOR procedure are in the results section. SODIUM LEVEL, SYRINGE STAT 07/06/2017 Results for this 7:48 AM CLOTHES SEPARATOR procedure are in the results section. IONIZED CALCIUM, ARTERIAL STAT 07/06/2017 Results for this 7:48 AM CLOTHES SEPARATOR procedure are in the results section. POTASSIUM, SYRINGE STAT 07/06/2017 Results for this 7:48 AM CLOTHES SEPARATOR procedure are in the results section. ARTERIAL BLOOD GAS, STAT 07/06/2017 Results for this CORRECTED 7:48 AM CLOTHES SEPARATOR procedure are in the results section. ECG 12-LEAD STAT 07/06/2017 Results for this 6:47 AM CLOTHES SEPARATOR procedure are in the results section. PREPARE RBC Routine 07/03/2017 Results for this 11:03 AM CLOTHES SEPARATOR procedure are in the results section. TYPE AND SCREEN Routine 07/03/2017 Malignant neoplasm of Results for this 11:03 AM CLOTHES SEPARATOR lung, unspecified procedure are in the laterality, unspecified results section. part of lung Pre-operative laboratory examination BREAST SPECIMEN Routine 06/22/2017 Mass of right breast Results for this 11:24 AM CLOTHES SEPARATOR procedure are in the results section. SURGICAL PATHOLOGY Routine 06/22/2017 Results for this REQUEST 11:00 AM CLOTHES SEPARATOR procedure are in the results section. NM INJECT SULFUR COLLOID Routine 06/22/2017 Breast cancer, stage 2, Results for this LYMPH 10:59 AM CLOTHES SEPARATOR right procedure are in the results section. SD AN ELECTIVE Routine 06/22/2017 SUPRAGLOTTIC AIRWAY 10:36 AM CLOTHES SEPARATOR Procedure Note - Pancho Allred CRNA - 06/22/2017 10:35 AM CLOTHES SEPARATOR Airway Date/Time: 06/22/2017 10:27 AM Performed by: PANCHO ALLRED Authorized by: DARON MADRID Location: OR Urgency: Elective Difficult Airway: No Anesthesio logist: DARON MADRID Resident/C RNA/AA: PANCHO ALLRED Performed by: resident/C RNA/AA Preoxygena amanda with 100% O2: Yes Mask Ventilatio n: Easy mask Final Airway Type: Supraglott ic airway Final LMA: I-Gel LMA Size: 3 Number of Attempts at Approach: 1 Dentition and soft tissue unchanged PARTIAL THROMBOPLASTIN Routine 06/21/2017 Pre-op testing Results for this TIME (PTT) 12:05 PM CLOTHES SEPARATOR procedure are in the results section. PROTHROMBIN TIME WITH INR Routine 06/21/2017 Pre-op testing Results for this 12:05 PM CLOTHES SEPARATOR procedure are in the results section. TYPE AND SCREEN Routine 06/21/2017 Malignant neoplasm of Results for this 12:05 PM CLOTHES SEPARATOR lower lobe of right lung procedure are in the Pre-op testing results section. ZZESTIMATED GFR Routine 06/21/2017 Results for this 12:00 PM CLOTHES SEPARATOR procedure are in the results section. PARTIAL THROMBOPLASTIN Routine 06/21/2017 Malignant neoplasm of Results for this TIME (PTT) 12:00 PM CLOTHES SEPARATOR lower lobe of right lung procedure are in the Pre-op testing results section. PROTHROMBIN TIME WITH INR Routine 06/21/2017 Malignant neoplasm of Results for this 12:00 PM CLOTHES SEPARATOR lower lobe of right lung procedure are in the Pre-op testing results section. HC COMPLETE BLD COUNT Routine 06/21/2017 Malignant neoplasm of Results for this W/AUTO DIFF 12:00 PM CLOTHES SEPARATOR lower lobe of right lung procedure are in the Pre-op testing results section. COMPREHENSIVE METABOLIC Routine 06/21/2017 Malignant neoplasm of Results for this PANEL 12:00 PM CLOTHES SEPARATOR lower lobe of right lung procedure are in the Pre-op testing results section. CTA CORONARY ARTERIES W Routine 06/19/2017 Mass of lung Results for this CONTRAST 2:33 PM CLOTHES SEPARATOR Malignant neoplasm of procedure are in the lower lobe of right lung results section. Mass of right side of neck Malignant neoplasm of upper-outer quadrant of right breast in female, estrogen receptor positive Heart failure, ACC/AHA stage A Smoking ECHOCARDIOGRAM 2D Routine 06/19/2017 Mass of lung Results for this COMPLETE W MMODE SPECTRAL 8:36 AM CLOTHES SEPARATOR Malignant neoplasm of procedure are in the COLOR DOPPLER ([id number]) lower lobe of right lung results section. Mass of right side of neck Malignant neoplasm of upper-outer quadrant of right breast in female, estrogen receptor positive Heart failure, ACC/AHA stage A Smoking ZZESTIMATED GFR STAT 05/22/2017 Results for this 7:40 AM CLOTHES SEPARATOR procedure are in the results section. MAGNESIUM LEVEL STAT 05/22/2017 Malignant neoplasm of Results for this 7:40 AM CLOTHES SEPARATOR upper-outer quadrant of procedure are in the right breast in female, results section. estrogen receptor positive HC COMPLETE BLD COUNT STAT 05/22/2017 Malignant neoplasm of Results for this W/AUTO DIFF 7:40 AM CLOTHES SEPARATOR upper-outer quadrant of procedure are in the right breast in female, results section. estrogen receptor positive COMPREHENSIVE METABOLIC STAT 05/22/2017 Malignant neoplasm of Results for this PANEL 7:40 AM CLOTHES SEPARATOR upper-outer quadrant of procedure are in the right breast in female, results section. estrogen receptor positive PET CT SKULL BASE TO MID Routine 05/11/2017 Malignant neoplasm of Results for this THIGH 4:44 PM CLOTHES SEPARATOR nipple of right female procedure are in the breast results section. POC GLUCOSE Routine 05/11/2017 Results for this 2:38 PM CLOTHES SEPARATOR procedure are in the results section. CT CHEST W CONTRAST Routine 05/04/2017 Squamous cell carcinoma Results for this 4:01 PM CLOTHES SEPARATOR of bronchus in right procedure are in the lower lobe results section. ZZESTIMATED GFR STAT 05/01/2017 Results for this 7:58 AM CLOTHES SEPARATOR procedure are in the results section. MAGNESIUM LEVEL STAT 05/01/2017 Malignant neoplasm of Results for this 7:58 AM CLOTHES SEPARATOR upper-outer quadrant of procedure are in the right breast in female, results section. estrogen receptor positive HC COMPLETE BLD COUNT STAT 05/01/2017 Malignant neoplasm of Results for this W/AUTO DIFF 7:58 AM CLOTHES SEPARATOR upper-outer quadrant of procedure are in the right breast in female, results section. estrogen receptor positive COMPREHENSIVE METABOLIC STAT 05/01/2017 Malignant neoplasm of Results for this PANEL 7:58 AM CLOTHES SEPARATOR upper-outer quadrant of procedure are in the right breast in female, results section. estrogen receptor positive ZZESTIMATED GFR STAT 04/10/2017 Results for this 7:29 AM CLOTHES SEPARATOR procedure are in the results section. MAGNESIUM LEVEL STAT 04/10/2017 Malignant neoplasm of Results for this 7:29 AM CLOTHES SEPARATOR upper-outer quadrant of procedure are in the right breast in female, results section. estrogen receptor positive HC COMPLETE BLD COUNT STAT 04/10/2017 Malignant neoplasm of Results for this W/AUTO DIFF 7:29 AM CLOTHES SEPARATOR upper-outer quadrant of procedure are in the right breast in female, results section. estrogen receptor positive COMPREHENSIVE METABOLIC STAT 04/10/2017 Malignant neoplasm of Results for this PANEL 7:29 AM CLOTHES SEPARATOR upper-outer quadrant of procedure are in the right breast in female, results section. estrogen receptor positive XR CHEST 1 VW PORTABLE STAT 04/02/2017 Results for this 2:54 PM CLOTHES SEPARATOR procedure are in the results section. OR FL < 1 HOUR Routine 04/02/2017 Results for this 2:25 PM CLOTHES SEPARATOR procedure are in the results section. SD AN ELECTIVE Routine 04/02/2017 SUPRAGLOTTIC AIRWAY 2:03 PM CLOTHES SEPARATOR Procedure Note - Beth Wu CRNA - 04/02/2017 2:03 PM CLOTHES SEPARATOR Airway Performed by: BETH WU Authorized by: ESSENCE THOMPSON Location: OR Urgency: Elective Difficult Airway: No Anesthesio logist: ESSENCE THOMPSON Resident/C RNA/AA: BETH WU Performed by: resident/C RNA Preoxygena amanda with 100% O2: Yes C-spine Precaution s Maintained Throughout : Yes Mask Ventilatio n: Not attempted Final Airway Type: Supraglott ic airway Final LMA: I-Gel LMA Size: 4 Number of Attempts at Approach: 1 Atraumati c, lips/teeth in preop condition Lubricant used for ease of placement, tongue midline POC GLUCOSE Routine 04/02/2017 Results for this 12:49 PM CLOTHES SEPARATOR procedure are in the results section. MRI BRAIN W WO CONTRAST Routine 03/27/2017 Malignant neoplasm of Results for this 1:37 PM CLOTHES SEPARATOR female breast, procedure are in the unspecified estrogen results section. receptor status, unspecified laterality, unspecified site of breast ZZESTIMATED GFR Routine 03/27/2017 Results for this 1:03 PM CLOTHES SEPARATOR procedure are in the results section. CREATININE LEVEL Routine 03/27/2017 Results for this 1:03 PM CLOTHES SEPARATOR procedure are in the results section. after 02/25/2017 Results * Mammo Diagnostic w Cad Bilateral (12/26/2017 2:56 PM) Narrative Performed At EXAMINATION:MAMMO DIAGNOSTIC W CAD BILATERAL, US BREAST COMPLETE HM [facility] BILATERAL12/26/2017 Computer-assisted detection was utilized in the interpretation of this exam. COMPARISONS:12/19/2016 INDICATION:Right breast lumpectomy 06/22/2017. FINDINGS: MAMMOGRAM: There is scattered fatty and fibroglandular tissue.There are postsurgical changes of the right breast consistent with lumpectomy, tissue rearrangement and postradiation skin thickening. There are no suspicious mammographic findings in either breast. A prominent lymph node in the left axilla is identified within the mammographic field of view. This is not present on the prior comparison exam. ULTRASOUND: High resolution [place] scale sonography includes imaging of all four quadrants and the retroareolar tissues. This demonstrates postsurgical changes of the right breast consistent with lumpectomy and tissue rearrangement. Skin thickening and tissue edema is consistent with post radiation change. There are no suspicious sonographic findings in either breast. Evaluation of the left axilla demonstrates benign lymph nodes without adenopathy. IMPRESSION: No evidence of malignancy. In the absence of any clinical change, continued routine annual mammographic surveillance per ACS guidelines is recommended. Findings and recommendations were discussed in person with the patient at the time of the examination. BI-RADS 2: BENIGN. [id number] Performing Organization Address City/State/Zipcode Phone Number [facility] [address] [place] [address] * US Breast Complete Bilateral (12/26/2017 1:45 PM) Narrative Performed At EXAMINATION:MAMMO DIAGNOSTIC W CAD BILATERAL, US BREAST COMPLETE HM [facility] BILATERAL12/26/2017 Computer-assisted detection was utilized in the interpretation of this exam. COMPARISONS:12/19/2016 INDICATION:Right breast lumpectomy 06/22/2017. FINDINGS: MAMMOGRAM: There is scattered fatty and fibroglandular tissue.There are postsurgical changes of the right breast consistent with lumpectomy, tissue rearrangement and postradiation skin thickening. There are no suspicious mammographic findings in either breast. A prominent lymph node in the left axilla is identified within the mammographic field of view. This is not present on the prior comparison exam. ULTRASOUND: High resolution [place] scale sonography includes imaging of all four quadrants and the retroareolar tissues. This demonstrates postsurgical changes of the right breast consistent with lumpectomy and tissue rearrangement. Skin thickening and tissue edema is consistent with post radiation change. There are no suspicious sonographic findings in either breast. Evaluation of the left axilla demonstrates benign lymph nodes without adenopathy. IMPRESSION: No evidence of malignancy. In the absence of any clinical change, continued routine annual mammographic surveillance per ACS guidelines is recommended. Findings and recommendations were discussed in person with the patient at the time of the examination. BI-RADS 2: BENIGN. [id number] Performing Organization Address City/State/Zipcode Phone Number [facility] [id number] [place] [address] * CT Chest W Contrast (11/30/2017 12:13 PM) Only the most recent of 2 results within the time period is included. Narrative Performed At EXAMINATION: [facility] CLINICAL HISTORY: C34.31 Malignant neoplasm of lower loberight bronchus or lung, cancer TECHNIQUE: Multiple axial images of the chest were obtained following intravenous administration of iodinated contrast. CT imaging was performed with iterative reconstruction technique and/or automated exposure control to reduce radiation dose. COMPARISON:CT dated 04/24/2017 IMPRESSION: CHEST: *Removal of left chest port. 1. Aorta: Calcification of the thoracic aorta is noted. No aneurysm. 2. Heart: The heart is normal in size. Coronary artery calcifications are present. 3. Pericardial Fluid: No pericardial effusion. 4. Mediastinum: No enlarged mediastinal or hilar lymphadenopathy. No mediastinal mass. 5. Airways: Central airways are patent. 6. Lungs: *Status post interval right lower lobectomy. No evidence of recurrence or metastatic disease. *Small loculated right pleural effusion. *Minimal scarring or atelectasis in the lingula. 7. Pleural Fluid: Small loculated right pleural effusion. 8. Bones: Degenerative scoliotic curvature of the spine. 9. Upper Abdomen: Stable thickening of the left adrenal gland. 10. Other Findings: None SUMMARY: 1. Removal of left chest port status post interval right lower lobectomy without evidence of recurrence or metastatic disease. 2.Small loculated right pleural effusion. [facility]-[id number] Procedure Note Interface, Radiology Results Incoming - 11/30/2017 12:31 PM CDT EXAMINATION: CT CHEST W CONTRAST CLINICAL HISTORY: C34.31 Malignant neoplasm of lower lobe right bronchus or lung, cancer TECHNIQUE: Multiple axial images of the chest were obtained following intravenous administration of iodinated contrast. CT imaging was performed with iterative reconstruction technique and/or automated exposure control to reduce radiation dose. COMPARISON: CT dated 04/24/2017 IMPRESSION: CHEST: * Removal of left chest port. 1. Aorta: Calcification of the thoracic aorta is noted. No aneurysm. 2. Heart: The heart is normal in size. Coronary artery calcifications are present. 3. Pericardial Fluid: No pericardial effusion. 4. Mediastinum: No enlarged mediastinal or hilar lymphadenopathy. No mediastinal mass. 5. Airways: Central airways are patent. 6. Lungs: * Status post interval right lower lobectomy. No evidence of recurrence or metastatic disease. * Small loculated right pleural effusion. * Minimal scarring or atelectasis in the lingula. 7. Pleural Fluid: Small loculated right pleural effusion. 8. Bones: Degenerative scoliotic curvature of the spine. 9. Upper Abdomen: Stable thickening of the left adrenal gland. 10. Other Findings: None SUMMARY: 1. Removal of left chest port status post interval right lower lobectomy without evidence of recurrence or metastatic disease. 2. Small loculated right pleural effusion. [facility]-[id number] Performing Organization Address City/[facility]/Zipcode Phone Number [address] [address] * Estimated GFR (11/30/2017 11:13 AM) GFR Non Af Amer >90 mL/min/1.73 m2 [facility] DEPARTMENT OF PATHOLOGY AND GENOMIC MEDICINE GFR Af Amer >90 mL/min/1.73 m2 [facility] DEPARTMENT OF Comment: PATHOLOGY AND Chronic kidney disease: <60 GENOMIC MEDICINE mL/min/1.73m2 Kidney failure: <15 mL/min/1.73m2 The estimated GFR is calculated from the IDMS-traceable Modification of Diet in Renal Disease Equation. The accuracy of the calculation is poor when the creatinine is normal. Calculated values >90 mL/min/1.73m2 are not reported. This equation has not been validated in children (<18 years), women, the elderly (>70 years), or ethnic groups other than Caucasians and Americans. Specimen Blood Performing Organization Address [facility] Mex[facility]ode Phone Number [address] [address] PATHOLOGY AND GENOMIC MEDICINE * POC creatinine (11/30/2017 11:13 AM) Only the most recent of 2 results within the time period is included. POC creatinine 0.6 0.5 - 0.9 mg/dl [facility] DEPARTMENT OF Comment: PATHOLOGY AND Meter ID: [id number] GENOMIC MEDICINE [employer] Import Representative: Mulugeta Rojas Specimen Blood Performing Organization Address City/[facility]/Zipcode Phone Number [address] [address] PATHOLOGY AND GENOMIC MEDICINE * IR Fabricio Cath Check (10/22/2017 11:51 AM) Narrative Performed At Performing Radiologist KASSIE Silva MD Assistants None Anesthesia Type None. Pre Procedure Diagnosis 67-year-old woman with swelling and pain when using her indwelling left chest port. Post Procedure Diagnosis Fibrin sheath along the catheter tip of the subcutaneous left chest port with TPA packing Procedure Port evaluation with contrast injection and digital subtraction angiography Technique Written informed consent was obtained prior to the procedure. The port was accessed using standard sterile technique with a 22-gauge Saha needle. The patient was placed in a supine position and the left upper chest was sterilely prepared and draped in the routine manner. Aspiration was attempted through the needle, demonstrating very sluggish blood return. A fluoroscopic image of the chest was obtained, demonstrating the left chest port, entering via the left internal jugular vein with catheter tip terminating over the central left brachiocephalic vein. Under fluoroscopy, contrast was then injected and digital subtraction images were then obtained, demonstrating the presence of a fibrin sheath along the tip of the port catheter. No contrast extravasation was seen along the catheter tubing. The port was then packed with dilute heparin. The patient tolerated the procedure well. Radiation Dose Ka,r=99.0 mGy Complications None Specimens Removed None Estimated Blood Loss None Blood/Blood Products Administered None Grafts/Implants As described in the above report Impression: 1. A piggery worker fluoroscopic image of the chest demonstrates a left chest port, entering via the left internal jugular vein with catheter tip terminating over the central left brachiocephalic vein. 2. Contrast injected through the subcutaneous left chest port and dual digital subtraction angiography was performed, demonstrating the presence of a fibrin sheath along the catheter tip. No contrast extravasation was seen along the catheter tubing or at the port hub. [facility]-[id number] Procedure Note Interface, Radiology Results Incoming - 10/22/2017 3:52 PM CDT Performing Radiologist Palmer Silva MD Assistants None Anesthesia Type None. Pre Procedure Diagnosis 67-year-old woman with swelling and pain when using her indwelling left chest port. Post Procedure Diagnosis Fibrin sheath along the catheter tip of the subcutaneous left chest port with TPA packing Procedure Port evaluation with contrast injection and digital subtraction angiography Technique Written informed consent was obtained prior to the procedure. The port was accessed using standard sterile technique with a 22-gauge Saha needle. The patient was placed in a supine position and the left upper chest was sterilely prepared and draped in the routine manner. Aspiration was attempted through the needle, demonstrating very sluggish blood return. A fluoroscopic image of the chest was obtained, demonstrating the left chest port, entering via the left internal jugular vein with catheter tip terminating over the central left brachiocephalic vein. Under fluoroscopy, contrast was then injected and digital subtraction images were then obtained, demonstrating the presence of a fibrin sheath along the tip of the port catheter. No contrast extravasation was seen along the catheter tubing. The port was then packed with dilute heparin. The patient tolerated the procedure well. Radiation Dose Ka,r=99.0 mGy Complications None Specimens Removed None Estimated Blood Loss None Blood/Blood Products Administered None Grafts/Implants As described in the above report Impression: 1. A piggery worker fluoroscopic image of the chest demonstrates a left chest port, entering via the left internal jugular vein with catheter tip terminating over the central left brachiocephalic vein. 2. Contrast injected through the subcutaneous left chest port and dual digital subtraction angiography was performed, demonstrating the presence of a fibrin sheath along the catheter tip. No contrast extravasation was seen along the catheter tubing or at the port hub. [facility]-[id number] Performing Organization Address City/State/Zipcode Phone Number [facility] [address] [place] [address] * Echocardiogram complete w contrast and 3D if needed (09/25/2017 2:46 PM) Narrative Performed At [facility] Echocardiography Report Pat.Name:ADELE VIRK Pat.ID:[id number] .Date: 09/25/2017 Refer.MD:DEANNE SANTORO MD Exam Time: 2:18:00 PMStudy Type:Routine Echo Height:68inWeight:158lb BSA: 1.85 m2 DOBAge:1950,67Y Sex: FEMALEBP:131/72 HR:62 bpmSonogrphr: Ky Aragon RDCS Pat. Stat.:OutpatientRoom:[facility] Study Status:Final Echo Event ID:[id number] Order ID:[id number] Reason for Study:HF; re-eval therapy guidance, evaluation of cardiac function History / Clinical:Cancer Procedures:2D Echo, Colorflow Doppler, Strain Race: SUMMARY: LV size is normal. LV EF is normal. FINDINGS: LV: LV size is normal. LV EF is normal. Overall wall motion is normal.Estimated EF is 60-64%. GLS=-18.1% RV: RV size is normal. RV systolic function is normal. LA: LA size is normal. RA: RA size is normal. AO: Aortic root diameter is normal. ROLF: No pericardial effusion. AV: No structural AV abnormalities noted. MV: No structural MV abnormalities noted. PV: Pulmonic valve not well seen. TV: No structural TV abnormalities noted. Lackey: Hepatic vein pressure is normal, RA pressure < 5mmHg. Diastolicdysfunction Grade I (Mild): Impaired relaxation withnormal LV filling pressures. Other:Insufficient TR jet to estimate PA systolic pressure. Normal Dopplerstudy. No intracardiac flow abnormalities detected byDoppler. MEASUREMENTS: 2D Parasternal Long Force LVOT 1.6 cmLA Ds2.6 cm LVIDd4.2 cmIndex2.3 cm/m Ao Rtd 3.3 cm Index1.8 cm/m LVIDs2.9 cmLV Hpme647.3 g(87-129) LV%fs 30.5 % LVM Index 83.9 g/m2 IVSd 1.1 cmRWT0.5 LVPWd1 cm LA Biplane LA 4Ch Area 10.7 cm2 LA Vol19.6 ml Index10.6 ml/m LA 2Ch Area 10.5 cm2 Signed 09/26/2017 09:22 AM Shaq Rowell MD Procedure Note Interface, Radiology Results In - 09/26/2017 9:24 AM CDT [facility] Echocardiography Report Pat.Name: ADELE VIRK Pat.ID: [id number] St.Date: 09/25/2017 Refer.MD: DEANNE SANTORO MD Exam Time: 2:18:00 PM Study Type:Routine Echo Height: 68in Weight: 158lb BSA: 1.85 m2 Age: 4 1950,67Y Sex: FEMALE BP: 131/72 HR: 62 bpm Sonogrphr: Ky Aragon RDCS Pat. Stat.:Outpatient Room: [facility] Study Status:Final Echo Event ID:[id number] Order ID: [id number] Reason for Study:HF; re-eval therapy guidance, evaluation of cardiac function History / Clinical:Cancer Procedures:2D Echo, Colorflow Doppler, Strain Race: SUMMARY: LV size is normal. LV EF is normal. FINDINGS: LV: LV size is normal. LV EF is normal. Overall wall motion is normal. Estimated EF is 60-64%. GLS=-18.1% RV: RV size is normal. RV systolic function is normal. LA: LA size is normal. RA: RA size is normal. AO: Aortic root diameter is normal. ROLF: No pericardial effusion. AV: No structural AV abnormalities noted. MV: No structural MV abnormalities noted. PV: Pulmonic valve not well seen. TV: No structural TV abnormalities noted. Lackey: Hepatic vein pressure is normal, RA pressure < 5mmHg. Diastolic dysfunction Grade I (Mild): Impaired relaxation with normal LV filling pressures. Other: Insufficient TR jet to estimate PA systolic pressure. Normal Doppler study. No intracardiac flow abnormalities detected by Doppler. MEASUREMENTS: 2D Parasternal Long Force LVOT 1.6 cm LA Ds 2.6 cm LVIDd 4.2 cm Index 2.3 cm/m Ao Rtd 3.3 cm Index 1.8 cm/m LVIDs 2.9 cm LV Mass 155.3 g (87-129) LV%fs 30.5 % LVM Index 83.9 g/m2 IVSd 1.1 cm RWT 0.5 LVPWd 1 cm LA Biplane LA 4Ch Area 10.7 cm2 LA Vol 19.6 ml Index 10.6 ml/m LA 2Ch Area 10.5 cm2 Signed 09/26/2017 09:22 AM Shaq Rowell MD Performing Organization Address City/State/Zipcode Phone Number [facility] [address] [place] [address] * Pv duplex venous upper extremity (09/18/2017 10:08 PM) Narrative Performed At EXAMINATION:US DUPLEX VENOUS UPPER EXTREMITY LEFT [facility] CLINICAL HISTORY:67 years 1950 eval for central line thrombosis COMPARISON:None. TECHNIQUE:Grayscale, color Doppler and spectral waveform analysis of the left internal jugular vein and of the left upper extremity deep venous system. FINDINGS: The left internal jugular vein is compressible with venous waveforms. Flow is identified within the subclavian vein. The left axillary, cephalic, basilic and brachial veins are compressible with flow. Flow is identified within the radial and ulnar veins. Flow was also documented in the right subclavian vein. Patient's left IJ chest port is visualized. Multiple images were obtained in the area of swelling near the clavicle without focal collection identified. IMPRESSION: No sonographic evidence of deep venous thrombosis of the left internal jugular vein or the left upper extremity. [facility]-[id number] Procedure Note Interface, Radiology Results Incoming - 09/18/2017 10:15 PM CDT EXAMINATION: US DUPLEX VENOUS UPPER EXTREMITY LEFT CLINICAL HISTORY: 67 years 1950 eval for central line thrombosis COMPARISON: None. TECHNIQUE: Grayscale, color Doppler and spectral waveform analysis of the left internal jugular vein and of the left upper extremity deep venous system. FINDINGS: The left internal jugular vein is compressible with venous waveforms. Flow is identified within the subclavian vein. The left axillary, cephalic, basilic and brachial veins are compressible with flow. Flow is identified within the radial and ulnar veins. Flow was also documented in the right subclavian vein. Patient's left IJ chest port is visualized. Multiple images were obtained in the area of swelling near the clavicle without focal collection identified. IMPRESSION: No sonographic evidence of deep venous thrombosis of the left internal jugular vein or the left upper extremity. [facility]-[id number] Performing Organization Address City/[facility]/Zipcode Phone Number [facility] [address] [place] [address] * Lactic acid level, SEPSIS - Now and repeat 2x every 3 hours (09/18/2017 10:05 PM) Only the most recent of 2 results within the time period is included. Lactic acid 0.8 0.5 - 2.2 mmol/L [facility] Specimen Blood Performing Organization Address City/[facility]/Zipcode Phone Number [address] [address] PATHOLOGY AND GENOMIC [facility] * Troponin, I-Stat (09/18/2017 10:05 PM) Only the most recent of 2 results within the time period is included. Troponin, I-Stat 0.00 0.00 - 0.08 ng/mL DEPARTMENT OF Comment: PATHOLOGY AND 0.30 - 1.49 GENOMIC MEDICINE, ng/mlNhy [facility] indicate increased risk of CENTER acute coronary syndrome. >=1.5 ng/ml Consistent with acute myocardial infarction. The diagnostic value of a single normal or non-diagnostic result is questionable.Serial samples at 2-6 hour intervals are required to rule out acute myocardial injury. Specimen Plasma specimen Performing Organization Address City/[facility]/Zipcode Phone Number DEPARTMENT OF [address] [facility] [facility] [place] [address] PATHOLOGY AND GENOMIC 140 MEDICINE, [facility] * XR Chest 2 Vw (09/18/2017 7:09 PM) Narrative Performed At XR CHEST 2 VW [facility] CLINICAL INDICATION:neck swelling by central lineeval for line frxmass COMPARISON:07/08/2017 IMPRESSION: Heart is normal in size and mediastinal contours are unchanged postoperatively. The lungs are clear noting volume loss in the right as before. Left infusion catheter remains present with its tip projecting in the SVC. Stable sclerotic focus is noted in the right humeral head unchanged from 2012. No active disease or change. Thank you for allowing us to participate in the care of your patient. [facility]-[id number] Procedure Note Interface, Radiology Results Incoming - 09/18/2017 7:15 PM CDT XR CHEST 2 VW CLINICAL INDICATION: neck swelling by central line eval for line frx mass COMPARISON: 07/08/2017 IMPRESSION: Heart is normal in size and mediastinal contours are unchanged postoperatively. The lungs are clear noting volume loss in the right as before. Left infusion catheter remains present with its tip projecting in the SVC. Stable sclerotic focus is noted in the right humeral head unchanged from 2012. No active disease or change. Thank you for allowing us to participate in the care of your patient. [facility]-[id number] Performing Organization Address City/State/Zipcode Phone Number [facility] [address] [place] [address] * Estimated GFR (09/18/2017 6:07 PM) Only the most recent of 9 results within the time period is included. GFR Non Af Amer >90 mL/min/1.73 m2 DEPARTMENT OF PATHOLOGY AND GENOMIC MEDICINE, [facility] GFR Af Amer >90 mL/min/1.73 m2 DEPARTMENT OF Comment: PATHOLOGY AND Chronic kidney disease: <60 GENOMIC MEDICINE, mL/min/1.73m2 [facility] Kidney failure: <15 CENTER mL/min/1.73m2 The estimated GFR is calculated from the IDMS-traceable Modification of Diet in Renal Disease Equation. The accuracy of the calculation is poor when the creatinine is normal. Calculated values >90 mL/min/1.73m2 are not reported. This equation has not been validated in children (<18 years), women, the elderly (>70 years), or ethnic groups other than Caucasians and Americans. Specimen Plasma specimen Performing Organization Address City/State/Zipcode Phone Number DEPARTMENT OF [address] [place] [address] PATHOLOGY AND GENOMIC 140 [facility] * Blood culture, aerobic & anaerobic (09/18/2017 6:07 PM) Blood culture isolate No growth after 5 days of [facility] DEPARTMENT OF incubation. PATHOLOGY AND Comment: GENOMIC MEDICINE Specimen Information Specimen Source: Blood Specimen Site: Forearm Right Specimen Blood Performing Organization Address City/State/Zipcode Phone Number [facility] DEPARTMENT OF [address] [place] [address] PATHOLOGY AND GENOMIC MEDICINE * CBC with platelet and differential (09/18/2017 6:07 PM) Only the most recent of 7 results within the time period is included. WBC 8.25 4.50 - 11.00 k/uL [facility] RBC 4.35 4.20 - 5.50 m/uL [facility] HGB 14.2 12.0 - 16.0 g/dL [facility]PART[facility]OLOG[facility] HCT 42.3 37.0 - 47.0 % [facility]OLOG[facility] MCV 97.2 82.0 - 100.0 fL [facility]PART[facility]OLOG[facility] MCH 32.6 27.0 - 34.0 pg [facility]OLOG[facility] MCHC 33.6 31.0 - 37.0 g/dL [facility] RDW - SD 46.1 37.0 - 55.0 fL [facility] MPV 9.7 8.8 - 13.2 fL [facility] Platelet count 288 150 - 400 k/uL [facility] Neutrophils 70.2 (H) 39.0 - 69.0 % [facility] Lymphocytes 18.9 (L) 25.0 - 45.0 % [facility] Monocytes 9.5 0.0 - 10.0 % [facility] Eosinophils 1.0 0.0 - 5.0 % [facility] Basophils 0.4 0.0 - 1.0 % [facility] Specimen Blood Performing Organization Address City/[facility]/[place] [address] PATHOLOGY AND GENOMIC [address] [place] [address] * B natriuretic peptide (09/18/2017 6:07 PM) BNP 41 0 - 100 pg/mL [facility]PART[facility] Specimen Blood Performing Organization Address City/[facility] [place] [address] * Comprehensive metabolic panel (09/18/2017 6:07 PM) Only the most recent of 5 results within the time period is included. Sodium 141Comment: Na is performed 135 - 148 mEq/L DEPARTMENT OF with I-STAT. PATHOLOG[facility] AND [facility] Potassium 3.6 3.5 - 5.0 mEq/L [facility]PART[facility] PATHOLOG[facility] Chloride 107 99 - 109 mEq/L DEPART[facility] OF PATHOLOGY [facility] CO2 27 24 - 31 mEq/L [facility]PART[facility] PATHOLOG[facility] Anion gap 7 7 - 15 mEq/L DEPARTMENT OF Comment: PATHOLOGY AND Starting from August GENOMIC MEDICINE, , anion gap calculation [facility] no longer incorporates CENTER potassium. Please note the change. BUN 18 8 - 24 mg/dL [facility]OLOG[facility] Creatinine 0.6 0.5 - 1.5 mg/dL [facility] Glucose 159 (H) 65 - 99 mg/dL [facility]OLOG[facility] Calcium 9.6 8.6 - 10.6 mg/dL [facility] Protein 7.1 6.3 - 8.2 g/dL [facility]OLOG[facility] Albumin 4.2 3.5 - 5.0 g/dL [facility] A/G ratio 1.4 0.7 - 3.8 [facility] Alkaline phosphatase 79 30 - 115 U/L [facility] AST 14 (L) 15 - 46 U/L [facility]OLOG[facility] ALT 10 10 - 55 U/L [facility] Total bilirubin <0.2 (A) 0.2 - 1.2 mg/dL [facility] Specimen Plasma specimen Performing Organization Address City/State/[facility] Mexicocode Phone Number DEPARTMENT OF [address] [place] [address], [place] [address] PATHOLOGY AND GENOMIC 140 [facility] * XR Chest 1 Vw Portable (07/08/2017 2:21 PM) Only the most recent of 6 results within the time period is included. Narrative Performed At EXAMINATION: Portable [facility] CLINICAL HISTORY:Chest Tube Removal COMPARISON: Most recent available chest x-ray. The heart is normal in size. A left jugular central venous catheter tip is in the superior vena cava. There are degenerative changes in the dorsal spine. IMPRESSION: 1.A right chest tube has been removed. There is a 5-10% pneumothorax over the apex of the right lung. 2.There is mild plate atelectasis in the left lung base. [id number] Procedure Note Interface, Radiology Results Incoming - 07/08/2017 2:30 PM CLOTHES SEPARATOR EXAMINATION: Portable chest x-ray CLINICAL HISTORY: Chest Tube Removal COMPARISON: Most recent available chest x-ray. The heart is normal in size. A left jugular central venous catheter tip is in the superior vena cava. There are degenerative changes in the dorsal spine. IMPRESSION: 1. A right chest tube has been removed. There is a 5-10% pneumothorax over the apex of the right lung. 2. There is mild plate atelectasis in the left lung base. [id number] Performing Organization Address City/State/Zipcode Phone Number [facility] [address] [place] [address] * CBC hemogram (07/08/2017 8:15 AM) WBC 11.19 (H) 4.50 - 11.00 k/uL [facility] DEPARTMENT OF PATHOLOGY AND GENOMIC MEDICINE RBC 3.35 (L) 4.20 - 5.50 m/uL [facility] DEPARTMENT OF PATHOLOGY AND GENOMIC MEDICINE HGB 11.2 (L) 12.0 - 16.0 g/dL [facility] DEPARTMENT OF PATHOLOGY AND GENOMIC MEDICINE HCT 34.9 (L) 37.0 - 47.0 % [facility] DEPARTMENT OF PATHOLOGY AND GENOMIC MEDICINE MCV 104.2 (H) 82.0 - 100.0 fL [facility] DEPARTMENT OF PATHOLOGY AND GENOMIC MEDICINE MCH 33.4 27.0 - 34.0 pg [facility] DEPARTMENT OF PATHOLOGY AND GENOMIC MEDICINE MCHC 32.1 31.0 - 37.0 g/dL [facility] DEPARTMENT OF PATHOLOGY AND GENOMIC MEDICINE RDW - SD 71.5 (H) 37.0 - 55.0 fL [facility] DEPARTMENT OF PATHOLOGY AND GENOMIC MEDICINE MPV 9.7 8.8 - 13.2 fL [facility] DEPARTMENT OF PATHOLOGY AND GENOMIC MEDICINE Platelet count 280 150 - 400 k/uL [facility] DEPARTMENT OF PATHOLOGY AND GENOMIC MEDICINE Nucleated RBC 0.00 /100 WBC [facility] DEPARTMENT OF PATHOLOGY AND GENOMIC MEDICINE Performing Organization Address City/State/Zipcode Phone Number [place] [phone] PATHOLOGY [facility] [email or web address] [facility] * Basic metabolic panel (07/08/2017 8:15 AM) Only the most recent of 3 results within the time period is included. Sodium 136 135 - 148 mEq/L [facility] DEPARTMENT OF PATHOLOGY AND GENOMIC MEDICINE Potassium 4.8 3.5 - 5.0 mEq/L [facility] DEPARTMENT OF PATHOLOGY AND GENOMIC MEDICINE Chloride 101 98 - 112 mEq/L [facility] DEPARTMENT OF PATHOLOGY AND GENOMIC MEDICINE CO2 21 (L) 24 - 31 mEq/L [facility] DEPARTMENT OF PATHOLOGY AND GENOMIC MEDICINE Anion gap 14 7 - 15 mEq/L [facility] DEPARTMENT OF Comment: PATHOLOGY AND Starting from August GENOMIC MEDICINE , anion gap calculation no longer incorporates potassium. Please note the change. BUN 24 (H) 8 - 23 mg/dL [facility] DEPARTMENT OF PATHOLOGY AND GENOMIC MEDICINE Creatinine 0.7 0.5 - 0.9 mg/dL [facility] DEPARTMENT OF PATHOLOGY AND GENOMIC MEDICINE Glucose 122 (H) 65 - 99 mg/dL [facility] DEPARTMENT OF PATHOLOGY AND GENOMIC MEDICINE Calcium 8.9 8.8 - 10.2 mg/dL [facility] DEPARTMENT OF PATHOLOGY AND GENOMIC MEDICINE Specimen Plasma specimen Performing Organization Address City/[facility] Phone Number [facility] [place] [address] PATHOLOGY AND GENOMIC MEDICINE * Surgical pathology request (07/06/2017 11:42 AM) Only the most recent of 5 results within the time period is included. [facility] DEPARTMENT OF PATHOLOGY AND GENOMIC MEDICINE Surgical pathology report See link below for PDF Lab [facility] DEPARTMENT OF Report PATHOLOGY AND GENOMIC MEDICINE Result status This is Supplemental Report to [facility] DEPARTMENT OF [id number] PATHOLOGY AND GENOMIC MEDICINE Narrative Performed At [employer] [facility] DEPARTMENT OF [id number] PATHOLOGY AND SERVICE DATE: 07/06/17 GENOMIC MEDICINE Performing Organization Address City/[facility]t Phone Number [facility] [place] [address] PATHOLOGY AND GENOMIC MEDICINE * Sodium level, syringe (07/06/2017 11:00 AM) Only the most recent of 4 results within the time period is included. Sodium, syringe 138 135 - 148 mEq/L [facility] DEPARTMENT OF PATHOLOGY AND GENOMIC MEDICINE Specimen Blood Performing Organization Address City/[facility] Phone Number [facility] [place] [address] PATHOLOGY AND GENOMIC MEDICINE * Potassium, syringe (07/06/2017 11:00 AM) Only the most recent of 4 results within the time period is included. Potassium, syringe 4.3 3.5 - 5.0 mEq/L [facility] DEPARTMENT OF PATHOLOGY AND GENOMIC MEDICINE Specimen Blood Performing Organization Address City/[facility] Phone Number [facility] [place] [address] PATHOLOGY AND GENOMIC MEDICINE * Ionized calcium, arterial (07/06/2017 11:00 AM) Only the most recent of 4 results within the time period is included. Ionized calcium, arterial 1.15 1.11 - 1.32 mmol/L [facility] DEPARTMENT OF PATHOLOGY AND GENOMIC MEDICINE Specimen Blood Performing Organization Address City/[facility]/Zipcode Phone Number [facility] [place] [address] PATHOLOGY AND GENOMIC MEDICINE * Hemoglobin, syringe (07/06/2017 11:00 AM) Only the most recent of 4 results within the time period is included. Hemoglobin, syringe 11.8 (L) 12.0 - 16.0 g/dL [facility] DEPARTMENT OF PATHOLOGY AND GENOMIC MEDICINE Specimen Blood Performing Organization Address City/[facility] [place] [address] PATHOLOGY AND GENOMIC MEDICINE * Glucose level, syringe (07/06/2017 11:00 AM) Only the most recent of 4 results within the time period is included. Glucose, syringe 158 (H) 65 - 99 mg/dL [facility] DEPARTMENT OF PATHOLOGY AND GENOMIC MEDICINE Specimen Blood Performing Organization Address [facility] [place] [address] PATHOLOGY AND GENOMIC MEDICINE * Arterial blood gas, corrected (07/06/2017 11:00 AM) Only the most recent of 2 results within the time period is included. pH, arterial 7.36 7.35 - 7.45 [facility] DEPARTMENT OF PATHOLOGY AND GENOMIC MEDICINE pCO2, arterial 40 35 - 45 mmHg [facility] DEPARTMENT OF PATHOLOGY AND GENOMIC MEDICINE pO2, arterial 370 (H) 80 - 90 mmHg [facility] DEPARTMENT OF PATHOLOGY AND GENOMIC MEDICINE Temperature, Celsius 37.0 Degrees C [facility] DEPARTMENT OF PATHOLOGY AND GENOMIC MEDICINE O2 saturation, arterial 99 95 - 100 % [facility] DEPARTMENT OF PATHOLOGY AND GENOMIC MEDICINE pH, arterial corrected 7.36 [facility] DEPARTMENT OF PATHOLOGY AND GENOMIC MEDICINE pCO2, arterial corrected 40 mmHg [facility] DEPARTMENT OF PATHOLOGY AND GENOMIC MEDICINE pO2, arterial corrected 370 mmHg [facility] DEPARTMENT OF PATHOLOGY AND GENOMIC MEDICINE Base excess, arterial -3 (L) -2 - 2 mEq/L [facility] DEPARTMENT OF PATHOLOGY AND GENOMIC MEDICINE Specimen Blood Performing Organization Address [facility] Phone Number [facility] [place] [address] PATHOLOGY AND GENOMIC MEDICINE * Miscellaneous referral test (07/06/2017 10:42 AM) [facility] test name [employer] [facility] test result SEE NOTE [facility] Comment: MET FISH Sample type: Paraffin, LYMPH NODE Case# [id number] RESULTS: NEGATIVE Interpretation: MET(7q31) signals per nucleus: 1.7 CEN7 signals per nucleus: 1.6 MET-CEN7 signal ratio: 1.1 An H&E stained slide was reviewed by a pathologist to identify traget areas containing invasive tumor. FISH analysis was performed within the marked target areas using a dual-probe FISH assay to detect MET overexpression. Results show no evidence of MET amplification with a MET/CEN7 ratio of <2.0. This is a NEGATIVE result. This MET FISH assay was scored manually by a certified clinical cytogenetics director. Two or more independent areas containing invasive tumor were analyzed and the technical results underwent further review for software quality manager purposes. Reference range: Positive: MET(7q31) to CEN7 signal ration is >/=2.0 or when 10% of tumor cells contain clusters of >15 copies per cell of MET (7q31) signals. Negative: MET(7q31) to CEN7 signal ratio is <2.0 Equivocal: MET copy number >/=5.0 and MET/CEN7 ratio <2.0 Probe set details: MET: nuc bj(CEN7x1.6,METx1.7)[50] Nuclei scored: 50 Test(s) performed by: [employer] [address] [place] [address] Narrative Performed At [employer] [facility] [id number] SERVICE DATE: 07/06/17 Performing Organization Address City/[facility]/Zipcode Phone Number [employer] [facility] [address] [place] [address] * Arterial blood gas (07/06/2017 10:00 AM) Only the most recent of 2 results within the time period is included. pH, arterial 7.33 (L) 7.35 - 7.45 [facility] DEPARTMENT OF PATHOLOGY AND GENOMIC MEDICINE pCO2, arterial 45 35 - 45 mmHg [facility] DEPARTMENT OF PATHOLOGY AND GENOMIC MEDICINE pO2, arterial 292 (H) 80 - 90 mmHg [facility] DEPARTMENT OF PATHOLOGY AND GENOMIC MEDICINE Bicarbonate, arterial 23.1 21.0 - 28.0 mmol/L [facility] DEPARTMENT OF PATHOLOGY AND GENOMIC MEDICINE Base excess, arterial -2 -2 - 2 mEq/L [facility] DEPARTMENT OF PATHOLOGY AND GENOMIC MEDICINE O2 saturation, arterial 99 95 - 100 % [facility] DEPARTMENT OF PATHOLOGY AND GENOMIC MEDICINE Specimen Blood Performing Organization Address City/State/Zipcode Phone Number [address] [address] PATHOLOGY AND GENOMIC MEDICINE * ECG 12 lead (07/06/2017 6:47 AM) Ventricular rate 73 [facility] MUSE Atrial rate 73 [facility] M[facility] SD interval 158 [facility] QRSD interval 90 [facility] QT interval 388 [facility] QTC interval 427 [facility] M[facility] P axis 1 69 [facility] QRS axis 1 26 [facility] T wave axis 36 [facility] EKG impression Normal sinus rhythm-Normal [facility] ECG-In automated comparison with ECG of -JUN-2015 08:43,-T wave inversion no longer evident in Anterior leads- Performing Organization Address City/[facility] Phone Number [facility] [address] [place] [address] * Prepare RBC (07/03/2017 11:03 AM) Product name Red Blood Cells -1, Leukored [facility] DEPARTMENT OF PATHOLOGY AND GENOMIC MEDICINE Unit number [id number] [facility] DEPARTMENT OF PATHOLOGY AND GENOMIC MEDICINE Product code [id number] [facility] DEPARTMENT OF PATHOLOGY AND GENOMIC MEDICINE Dispense status Returned to BB not transfused [facility] DEPARTMENT OF PATHOLOGY AND GENOMIC MEDICINE Blood expiration date [facility] DEPARTMENT OF PATHOLOGY AND GENOMIC MEDICINE Blood type code 0600 [facility] DEPARTMENT OF PATHOLOGY AND GENOMIC MEDICINE Blood type A NEGATIVE [facility] DEPARTMENT OF PATHOLOGY AND GENOMIC MEDICINE Product name Red Blood Cells -1, Leukored [facility] DEPARTMENT OF PATHOLOGY AND GENOMIC MEDICINE Unit number [id number] [facility] DEPARTMENT OF PATHOLOGY AND GENOMIC MEDICINE Product code [id number] [facility] DEPARTMENT OF PATHOLOGY AND GENOMIC MEDICINE Dispense status Returned to BB not transfused [facility] DEPARTMENT OF PATHOLOGY AND GENOMIC MEDICINE Blood expiration date [facility] DEPARTMENT OF PATHOLOGY AND GENOMIC MEDICINE Blood type code 0600 [facility] DEPARTMENT OF PATHOLOGY AND GENOMIC MEDICINE Blood type A NEGATIVE [facility] DEPARTMENT OF PATHOLOGY AND GENOMIC MEDICINE Performing Organization Address City/[facility] Phone Number [address] [address] PATHOLOGY AND GENOMIC MEDICINE * Type and screen (07/03/2017 11:03 AM) Only the most recent of 2 results within the time period is included. ABO grouping A [facility] DEPARTMENT OF PATHOLOGY AND GENOMIC MEDICINE Rh type NEG [facility] DEPARTMENT OF PATHOLOGY AND GENOMIC MEDICINE Antibody screen (gel) NEG [facility] DEPARTMENT OF PATHOLOGY AND GENOMIC MEDICINE Specimen Blood Performing Organization Address [facility] Phone Number [facility] DEPARTMENT OF [address] [place] [address] PATHOLOGY AND GENOMIC MEDICINE * Breast Specimen (06/22/2017 11:24 AM) Narrative Performed At EXAMINATION:BREAST SPECIMEN [facility] IMPRESSION: Intra-operative digital Faxitron breast specimen radiography was provided for the surgeon by [facility]. A radiologist was not involved in the interpretation of the images. Please see the surgical operative note for further information and image interpretation. [id number] Performing Organization Address [facility] Phone Number [facility] [address] [place] [address] * NM Inject Sulfur Colloid Lymph (06/22/2017 10:59 AM) Narrative Performed At PROCEDURE:NM INJECT [facility]UL[facility] INDICATION:Breast cancer. TECHNIQUE: The patient was injected intradermally and subcutaneously with 1.5 mCi of filtered Tc-99m sulfur colloid in the right breast.No imaging was obtained. IMPRESSION: 1.Injection only of radiotracer.No imaging was obtained. [facility]-[id number] Procedure Note [facility], Radiology Results Incoming - 06/22/2017 11:14 AM CLOTHES SEPARATOR PROCEDURE: NM INJECT SULFUR COLLOID LYMPH INDICATION: Breast cancer. TECHNIQUE: The patient was injected intradermally and subcutaneously with 1.5 mCi of filtered Tc-99m sulfur colloid in the right breast. No imaging was obtained. IMPRESSION: 1. Injection only of radiotracer. No imaging was obtained. [facility]-[id number] Performing Organization Address [facility] Phone Number [facility] [address] [place] [address] * Partial thromboplastin time, activated (06/21/2017 12:05 PM) Only the most recent of 2 results within the time period is included. PTT 28.5 23.0 - 36.0 sec [facility] DEPARTMENT OF Comment: PATHOLOGY AND PTT therapeutic range for GENOMIC MEDICINE unfractionated heparin is 61.0-112.0 seconds which corresponds to Anti-Xa 0.3-0.7 U/ml. Specimen Blood Performing Organization Address [facility]/Zipcode Phone Number [facility] [place] [address] [place] [address] PATHOLOGY AND GENOMIC MEDICINE * Prothrombin time with INR (06/21/2017 12:05 PM) Only the most recent of 2 results within the time period is included. Prothrombin time 12.1 12.0 - 15.0 sec [facility] DEPARTMENT OF PATHOLOGY AND GENOMIC MEDICINE INR 0.9 [facility] DEPARTMENT OF Comment: PATHOLOGY AND The International Normalized GENOMIC MEDICINE Ratio (INR) is a therapeutic monitoring tool for patients who are stable on oral anticoagulant therapy. An INR of 2.0-3.0 is suggested for deep vein thrombosis/pulmonary embolism. Specimen Blood Performing Organization Address City/State/Zipcode Phone Number [facility] [place] [address] [address] [place] [id number] PATHOLOGY AND GENOMIC MEDICINE * Cv cta coronary arteries w contrast (06/19/2017 2:33 PM) Narrative Performed At [facility] Nuclear Cardiology and Cardiac CT [address] [place] [address] CTA Coronary Arteries Report Pat.Name:ADELE VIRK Pat.ID:[id number] St.Date: 06/19/2017Refer.MD:DEANNE SANTORO MD Exam Time: 2:12:00 PMStudy Type:CTA Coronary Arteries Height:62inWeight:152lb BSA: 1.7 y4XATMmv:1950,66Y Sex: FEMALEBP:115/57 HR:96 bpm Nuclear Tech:Anand Elizabeth RT(KS)(CT), [facility] Pat. Stat.:Outpatient CPT - 4: CCTA w Thoracic Aorta (NonCongenital) [id number] Nuclear Event ID:[id number] Order ID:[id number] Reason for Study:CAD History / Clinical:Diabetes, Tobacco use (including smokeless tobacco), danette's thyroidistis, colon resection 2012 Procedures:CT Prospective (intervals) Race:C SUMMARY: Technique: IV contrast was administered and sequential 0.[address] cuts were obtained through the chest using the Siemens Somatom Force CT scanner. Post-processing and 3D reconstruction were done using the [employer] workstation. Interactive image viewing and volumetric display and analysis were also performed. CTA RESULTS Left Main: A normal sized 4.5mm artery which arises normally from the left sinus of Valsalva and divides into the left anterior descending and circumflex coronary arteries. Mild calcified atherosclerotic plaque is present but without significant stenosis. Left anterior descending (LAD): A normal sized 3.5mm artery which wraps around the apex and gives off one diagonal branch. Mild predominantly calcified atherosclerotic plaque is present in the proximal and mid segments but without significant stenosis. The first diagonal is a 2.8 mm quadfurcating artery which has mild predominantly calcified atherosclerotic plaque present but with no significant stenosis. Left circumflex: A normal sized 2.8 mm non-dominant artery which arises normally from the left main and gives off one major obtuse marginal artery before terminating in the AV groove. Mild calcified atherosclerotic plaque is present in the proximal and mid segments with but without significant stenosis. The first obtuse marginal is a 2.1 mm bifurcating artery which has mild predominantly calcified atherosclerotic plaque present but no significant stenosis. Right coronary artery: A normal sized 4.0 mm dominant artery which arises normally from the right sinus of Valsalva and gives off several right ventricular branches, the posterior descending artery and the posterolateral artery. Moderate predominantly calcified atherosclerotic plaque is present in the proximal, mid and distal segments but without significant stenosis. The posterior descending is a 2.2 mm artery which has mild calcified atherosclerotic plaque present but no significant stenosis. The posterolateral is a 2.4 mm artery which has mild calcified atherosclerotic plaque present but no significant stenosis. Ramus: None. Stents: None. Bypass Grafts: None. Pulmonary Arteries: The main pulmonary artery is mildly dilated at 3.2 cm but with no proximal thrombus identified. Left Atrial and Pulmonary Vein Dimensions: Left atrial size (A-P diameter) 3.2 cm. Normal PV anatomy Left superior PV15 mm. Left inferior PV14 mm. Right superior PV15 mm. Right inferior PV16 mm. There is no evidence of the left atrial appendage clot. Left Ventricular Valve Morphology/Function: LV septal wall thickness 11 mm. Aortic valve is tri-leaflet and there is no evidence of stenosis or regurgitation. Mitral valve is normal without evidence of stenosis or regurgitation. Thoracic Aortic Dimensions: No aortic aneurysm or dissection is seen. Aortic root3.2 cm. Sinotubular junction 2.6 cm. Mid ascending aorta 3.2 cm. Descending thoracic aorta 2.4 cm. Pericardium: No pericardial effusion or pericardial thickening. Non-Cardiac Findings: 15mm x 23mm minimally calcified nodule in the right breast. There is a spiculated 7mm x 11mm nodule in the right lower lobe of the lung. CONCLUSION CT coronary angiography shows coronary atherosclerosis but no significant coronary artery stenosis. Normal PV anatomy. There is no evidence of the left atrial appendage clot. 15mm x 23mm minimally calcified nodule in the right breast. There is a spiculated 7mm x 11mm nodule in the right lower lobe of the lung. STUDY QUALITY The study quality is good. COMMENTS None. The above report was based on a dedicated Cardiovascular CTA Protocol and interpreted by a Physical Therapy Coordinator.Should a more comprehensive assessment of non-cardiovascular findings be desired, please consult a radiologist.These images are available in the [facility] Eventful PACS system. Signed 06/19/2017 06:10 PM Fredrick Vitale MD Procedure Note Interface, Radiology Results In - 06/19/2017 6:10 PM [facility] Nuclear Cardiology and Cardiac CT [address] [place] [address] CTA Coronary Arteries Report Pat.Name: ADELE VIRK Pat.ID: [id number] St.Date: 06/19/2017 Refer.MD: DEANNE SANTORO MD Exam Time: 2:12:00 PM Study Type:CTA Coronary Arteries Height: 62in Weight: 152lb BSA: 1.7 m2 Age: 4 1950,66Y Sex: FEMALE BP: 115/57 HR: 96 bpm Nuclear Tech:Anand Elizabeth RT(NM)(CT), [facility] Pat. Stat.:Outpatient CPT - 4: CCTA w Thoracic Aorta (NonCongenital) [id number] Nuclear Event ID:[id number] Order ID: [id number] Reason for Study:CAD History / Clinical:Diabetes, Tobacco use (including smokeless tobacco), danette's thyroidistis, colon resection 2012 Procedures:CT Prospective (intervals) Race: C SUMMARY: Technique: IV contrast was administered and sequential 0.[address] cuts were obtained through the chest using the Siemens Somatom Force CT scanner. Post-processing and 3D reconstruction were done using the [employer] workstation. Interactive image viewing and volumetric display and analysis were also performed. CTA RESULTS Left Main: A normal sized 4.5mm artery which arises normally from the left sinus of Valsalva and divides into the left anterior descending and circumflex coronary arteries. Mild calcified atherosclerotic plaque is present but without significant stenosis. Left anterior descending (LAD): A normal sized 3.5mm artery which wraps around the apex and gives off one diagonal branch. Mild predominantly calcified atherosclerotic plaque is present in the proximal and mid segments but without significant stenosis. The first diagonal is a 2.8 mm quadfurcating artery which has mild predominantly calcified atherosclerotic plaque present but with no significant stenosis. Left circumflex: A normal sized 2.8 mm non-dominant artery which arises normally from the left main and gives off one major obtuse marginal artery before terminating in the AV groove. Mild calcified atherosclerotic plaque is present in the proximal and mid segments with but without significant stenosis. The first obtuse marginal is a 2.1 mm bifurcating artery which has mild predominantly calcified atherosclerotic plaque present but no significant stenosis. Right coronary artery: A normal sized 4.0 mm dominant artery which arises normally from the right sinus of Valsalva and gives off several right ventricular branches, the posterior descending artery and the posterolateral artery. Moderate predominantly calcified atherosclerotic plaque is present in the proximal, mid and distal segments but without significant stenosis. The posterior descending is a 2.2 mm artery which has mild calcified atherosclerotic plaque present but no significant stenosis. The posterolateral is a 2.4 mm artery which has mild calcified atherosclerotic plaque present but no significant stenosis. Ramus: None. Stents: None. Bypass Grafts: None. Pulmonary Arteries: The main pulmonary artery is mildly dilated at 3.2 cm but with no proximal thrombus identified. Left Atrial and Pulmonary Vein Dimensions: Left atrial size (A-P diameter) 3.2 cm. Normal PV anatomy Left superior PV15 mm. Left inferior PV14 mm. Right superior PV15 mm. Right inferior PV16 mm. There is no evidence of the left atrial appendage clot. Left Ventricular Valve Morphology/Function: LV septal wall thickness 11 mm. Aortic valve is tri-leaflet and there is no evidence of stenosis or regurgitation. Mitral valve is normal without evidence of stenosis or regurgitation. Thoracic Aortic Dimensions: No aortic aneurysm or dissection is seen. Aortic root 3.2 cm. Sinotubular junction 2.6 cm. Mid ascending aorta 3.2 cm. Descending thoracic aorta 2.4 cm. Pericardium: No pericardial effusion or pericardial thickening. Non-Cardiac Findings: 15mm x 23mm minimally calcified nodule in the right breast. There is a spiculated 7mm x 11mm nodule in the right lower lobe of the lung. CONCLUSION CT coronary angiography shows coronary atherosclerosis but no significant coronary artery stenosis. Normal PV anatomy. There is no evidence of the left atrial appendage clot. 15mm x 23mm minimally calcified nodule in the right breast. There is a spiculated 7mm x 11mm nodule in the right lower lobe of the lung. STUDY QUALITY The study quality is good. COMMENTS None. The above report was based on a dedicated Cardiovascular CTA Protocol and interpreted by a Physical Therapy Coordinator. Should a more comprehensive assessment of non-cardiovascular findings be desired, please consult a radiologist. These images are available in the [facility] Eventful PACS system. Signed 06/19/2017 06:10 PM Fredrick Vitale MD Performing Organization Address City/State/Zipcode Phone Number [facility] [address] [place] [address] * Echocardiogram complete w contrast and 3D if needed (06/19/2017 8:36 AM) Narrative Performed At [facility] Echocardiography Report Pat.Name:ADELE VIRK Pat.ID:[id number] .Date: 06/19/2017 Refer.MD:DEANNE SANTORO MD Exam Time: 8:15:00 AMStudy Type:Routine Echo Height:62inBSA: 1.69 m2 DOBAge:1950,66Y Sex: FEMALE BP:122/55HR: 92 bpm Sonogrphr: TORSTEN Lyman FASE Pat. Stat.:Outpatient Room:[address] Status:Final Echo Event ID:[id number] Order ID:[id number] Reason for Study:evaluation of cardiac function History / Clinical:Cancer Procedures:2D Echo, Colorflow Doppler, Strain SUMMARY: LV size is normal. LV EF is normal. FINDINGS: LV: LV size is normal. LV EF is normal. Overall wall motion is normal.Estimated EF is 60-64%. GLS=-18.7% RV: RV size is normal. RV systolic function is normal. LA: LA size is normal. RA: RA size is normal. AO: Aortic root diameter is normal. ROLF: No pericardial effusion. AV: No structural AV abnormalities noted. MV: No structural MV abnormalities noted. PV: No structural PV abnormalities noted. TV: No structural TV abnormalities noted. Lackey: Diastolic dysfunction Grade I (Mild): Impaired relaxation withnormal LV filling pressures. Other:Insufficient TR jet to estimate PA systolic pressure. Normal Dopplerstudy. No intracardiac flow abnormalities detected byDoppler. MEASUREMENTS: 2D Parasternal Long Force LVOT 1.6 cmLA Ds3 cm LVIDd3.8 cmIndex2.3 cm/m Ao An1.8 cm LVIDs2.5 cmAo Rtd 3.2 cm Index1.9 cm/m LV%fs 33.7 % LV Spjl951.9 g(87-129) IVSd 1.2 cmRWT0.6 LVPWd1.1 cm LA Sng Plane LA Area9.4 cm2(8.8-23.4) LA Vol17.1 ml Index10.1 ml/m LA LngAx 4.3 cm Signed 06/19/2017 02:12 PM Shaq Rowell MD Procedure Note Interface, Radiology Results In - 06/19/2017 2:13 PM CLOTHES SEPARATOR [facility] Echocardiography Report Pat.Name: ADELE VIRK.ID: [id number] .Date: 06/19/2017 Refer.MD: DEANNE SANTORO MD Exam Time: 8:15:00 AM Study Type:Routine Echo Height: 62in BSA: 1.69 m2 Age: 4 1950,66Y Sex: FEMALE BP: 122/55 HR: 92 bpm Sonogrphr: TORSTEN Lyman FASE Pat. Stat.:Outpatient Room: [place] [address] Study Status:Final Echo Event ID:[id number] Order ID: [id number] Reason for Study:evaluation of cardiac function History / Clinical:Cancer Procedures:2D Echo, Colorflow Doppler, Strain SUMMARY: LV size is normal. LV EF is normal. FINDINGS: LV: LV size is normal. LV EF is normal. Overall wall motion is normal. Estimated EF is 60-64%. GLS=-18.7% RV: RV size is normal. RV systolic function is normal. LA: LA size is normal. RA: RA size is normal. AO: Aortic root diameter is normal. ROLF: No pericardial effusion. AV: No structural AV abnormalities noted. MV: No structural MV abnormalities noted. PV: No structural PV abnormalities noted. TV: No structural TV abnormalities noted. Lackey: Diastolic dysfunction Grade I (Mild): Impaired relaxation with normal LV filling pressures. Other: Insufficient TR jet to estimate PA systolic pressure. Normal Doppler study. No intracardiac flow abnormalities detected by Doppler. MEASUREMENTS: 2D Parasternal Long Force LVOT 1.6 cm LA Ds 3 cm LVIDd 3.8 cm Index 2.3 cm/m Ao An 1.8 cm LVIDs 2.5 cm Ao Rtd 3.2 cm Index 1.9 cm/m LV%fs 33.7 % LV Mass 144.9 g (87-129) IVSd 1.2 cm RWT 0.6 LVPWd 1.1 cm LA Sng Plane LA Area 9.4 cm2 (8.8-23.4) LA Vol 17.1 ml Index 10.1 ml/m LA LngAx 4.3 cm Signed 06/19/2017 02:12 PM Shaq Rowell MD Performing Organization Address [facility] Phone Number [facility] [address] [place] [address] * Magnesium level (05/22/2017 7:40 AM) Only the most recent of 3 results within the time period is included. Magnesium 2.0 1.6 - 2.4 mg/dL [facility] DEPARTMENT OF PATHOLOGY AND GENOMIC MEDICINE Specimen Plasma specimen Performing Organization Address [facility] Phone Number [facility] DEPARTMENT OF [address] [place] [address] PATHOLOGY AND GENOMIC MEDICINE * PET/CT Skull Base To Mid Thigh (05/11/2017 4:44 PM) Narrative Performed At PROCEDURE:PET CT SKULL BASE TO MID THIGH [facility] INDICATION:Restaging breast cancer, subsequent treatment strategy. TECHNIQUE:Blood glucose measured at the time of injection was 123 mg/dL. The patient was then injected with 7.5 mCi of 18F-FDG, IV.Approximately one hour later, PET images were acquired from the skull base to the mid thighs. Corresponding, low dose, non-contrast CT scanning was performed as part of the attenuation correction process.Automated dose exposure control was utilized. COMPARISON:PET CT scan dated 01/30/2017. FINDINGS: Head and neck:No suspicious brain uptake.Normal uptake is seen in the visualized sinuses, orbits, nasopharynx, and oropharynx.Uptake by the larynx is normal.No suspicious neck lymph node uptake. Chest:No abnormal mediastinal, hilar, or axillary lymph node uptake.Previously described right lower lung nodules have improved.The more inferior nodule has resolved.The more superior nodule measures 1.5 cm x 0.8 cm and demonstrates an SUV of 1.4.It previously demonstrated an SUV of 1.8.It is stable in size.No suspicious new pulmonary uptake.Previously described right breast lesion has improved, currently demonstrating an SUV of 2.1.It previously measured 5.3.It measures 2.7 cm x 1.5 cm.This is similar to prior. Abdomen:Normal uptake is seen in the stomach, spleen, pancreas, liver, and adrenal glands.No abnormal retroperitoneal or mesenteric lymph node uptake.Physiologic bowel uptake. Pelvis:Physiologic bowel uptake.No abnormal pelvic sidewall or inguinal lymph node uptake. Review of the osseous structures demonstrates diffusely prominent bone marrow uptake, compatible with reactive changes.Scoliosis of the spine.No suspicious focal osseous uptake. IMPRESSION: 1.Interval partial response, though there is likely residual, viable malignancy within the primary right breast lesion. 2.No evidence for active metastatic disease is seen. [facility]-[id number] Procedure Note [facility], Radiology Results Incoming - 05/11/2017 6:11 PM CLOTHES SEPARATOR PROCEDURE: PET CT SKULL BASE TO MID THIGH INDICATION: Restaging breast cancer, subsequent treatment strategy. TECHNIQUE: Blood glucose measured at the time of injection was 123 mg/dL. The patient was then injected with 7.5 mCi of 18F-FDG, IV. Approximately one hour later, PET images were acquired from the skull base to the mid thighs. Corresponding, low dose, non-contrast CT scanning was performed as part of the attenuation correction process. Automated dose exposure control was utilized. COMPARISON: PET CT scan dated 01/30/2017. FINDINGS: Head and neck: No suspicious brain uptake. Normal uptake is seen in the visualized sinuses, orbits, nasopharynx, and oropharynx. Uptake by the larynx is normal. No suspicious neck lymph node uptake. Chest: No abnormal mediastinal, hilar, or axillary lymph node uptake. Previously described right lower lung nodules have improved. The more inferior nodule has resolved. The more superior nodule measures 1.5 cm x 0.8 cm and demonstrates an SUV of 1.4. It previously demonstrated an SUV of 1.8. It is stable in size. No suspicious new pulmonary uptake. Previously described right breast lesion has improved, currently demonstrating an SUV of 2.1. It previously measured 5.3. It measures 2.7 cm x 1.5 cm. This is similar to prior. Abdomen: Normal uptake is seen in the stomach, spleen, pancreas, liver, and adrenal glands. No abnormal retroperitoneal or mesenteric lymph node uptake. Physiologic bowel uptake. Pelvis: Physiologic bowel uptake. No abnormal pelvic sidewall or inguinal lymph node uptake. Review of the osseous structures demonstrates diffusely prominent bone marrow uptake, compatible with reactive changes. Scoliosis of the spine. No suspicious focal osseous uptake. IMPRESSION: 1. Interval partial response, though there is likely residual, viable malignancy within the primary right breast lesion. 2. No evidence for active metastatic disease is seen. [facility]-[id number] Performing Organization Address [facility] Phone Number [facility] [address] [place] [address] * POC glucose (05/11/2017 2:38 PM) Only the most recent of 2 results within the time period is included. POC glucose 123 (H) 65 - 99 mg/dL [facility] DEPARTMENT OF Comment: PATHOLOGY AND Meter ID: [id number] GENOMIC MEDICINE Ocean Import Representative: Benito Do Performing Organization Address City/[facility]/Zipcode Phone Number [facility] DEPARTMENT OF [facility] [place] [address] PATHOLOGY AND GENOMIC MEDICINE * OR FL < 1 Hour (04/02/2017 2:25 PM) Narrative Performed At EXAMINATION:OR [place] 1 HOUR [facility] C-arm fluoroscopy was requested in OR. PORT A CATH OR 16 YAHIR 2 FLUORO TIME: 3.9 SECONDS DOSE: 0.13 MGY IMPRESSION: Separate operative report will be issued by the physician performing the procedure. [id number] Procedure Note Interface, Radiology Results Incoming - 04/02/2017 2:39 PM CLOTHES SEPARATOR EXAMINATION: OR FL 1 HOUR C-arm fluoroscopy was requested in OR. PORT A CATH OR 16 YAHIR 2 FLUORO TIME: 3.9 SECONDS DOSE: 0.13 MGY IMPRESSION: Separate operative report will be issued by the physician performing the procedure. [id number] Performing Organization Address [facility] Phone Number [facility] [address] [place] [address] * MRI Brain W Wo Contrast (03/27/2017 1:37 PM) Narrative Performed At EXAMINATION: MRI BRAIN W WO CONTRAST [facility] CLINICAL HISTORY: C50.919 Malignant neoplasm of unspecified site of unspecified female breast, BREAST CANCER COMPARISON:MRI brain 09/21/2015 TECHNIQUE: Multiplanar and multisequence MRI imaging of the brain was obtained with and without contrast. FINDINGS: No evidence of acute intracranial hemorhage, mass, mass effect, acute infarct or midline shift. Ventricles and sulci are normal in appearance for patient's age. Stable scattered subcortical and periventricular white matter T2 FLAIR hyperintensities likely reflecting mild chronic microvascular ischemic changes. No abnormal intracranial enhancement. No abnormal susceptibility. Basal cisterns are clear. Major intracranial flow voids are maintained. Orbits are normal in appearance. Small left mastoid effusion. Trace mucosal thickening of few right mastoid air cells. No significant sinus inflammatory changes. IMPRESSION: No evidence of intracranial metastasis or acute abnormality. Stable exam compared with 09/21/2015. [id number] Procedure Note Interface, Radiology Results Incoming - 03/27/2017 1:59 PM CLOTHES SEPARATOR EXAMINATION: MRI BRAIN W WO CONTRAST CLINICAL HISTORY: C50.919 Malignant neoplasm of unspecified site of unspecified female breast, BREAST CANCER COMPARISON: MRI brain 09/21/2015 TECHNIQUE: Multiplanar and multisequence MRI imaging of the brain was obtained with and without contrast. FINDINGS: No evidence of acute intracranial hemorhage, mass, mass effect, acute infarct or midline shift. Ventricles and sulci are normal in appearance for patient's age. Stable scattered subcortical and periventricular white matter T2 FLAIR hyperintensities likely reflecting mild chronic microvascular ischemic changes. No abnormal intracranial enhancement. No abnormal susceptibility. Basal cisterns are clear. Major intracranial flow voids are maintained. Orbits are normal in appearance. Small left mastoid effusion. Trace mucosal thickening of few right mastoid air cells. No significant sinus inflammatory changes. IMPRESSION: No evidence of intracranial metastasis or acute abnormality. Stable exam compared with 09/21/2015. [id number] Performing Organization Address City/State/Zipcode Phone Number [facility] [address] [place] [address] * Creatinine level (03/27/2017 1:03 PM) Creatinine 0.7Comment: Testing performed 0.5 - 0.9 mg/dL [facility] DEPARTMENT OF on the ISTAT instrument by RN PATHOLOGY AND [id number]. GENOMIC MEDICINE Specimen Plasma specimen Performing Organization Address City/State/Zipcode Phone Number [facility] DEPARTMENT OF [address] [place] [address] PATHOLOGY AND GENOMIC MEDICINE after 02/25/2017 Insurance Payer Benefit Subscriber ID Type Phone Address Plan / Group BCBS BCBS OUT xxxxxxxxxxxx PPO OF STATE [employer] Self 1950 Home: [address] [place] [address] Surgery
--- OUTSIDE RECORDS SUMMARY | 2018-02-26 14:47 | XMS REPORT | Continuity of Care Document ---
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 [facility] Hypothyroidism Resolved Problem 01/02/2017 [facility] Sleep apnea Resolved Problem 01/02/2017 [facility] Type 2 diabetes mellitus Resolved Problem 01/02/2017 [facility] CESAR AIDEE MAJOR SALIVARY Active [facility] Medications Medication Details Route Status Patient Instructions Ordering Provider Order Date Source Allergies, Adverse Reactions, Alerts Substance Category Reaction Severity Reaction type Status Date Reported Comments Source morphine Assertion Drug allergy Active [facility] neomycin Assertion Drug allergy Active [facility] Immunizations Immunization Date Given Site Status Last Updated Comments Source Results Order Name Results Value Reference Range Date Interpretation Comments Source Neck soft tissue w contrast CT Neck soft tissue w contrast CT EXAM: CT NECK WITH CONTRAST DATE: 12/30/2016 2:42 PM CDT INDICATION: - 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 Reformatted images in the sagittal and coronal plane were included. IV contrast: 100 mL of Omniscan DLP: 615 mGy-cm FINDINGS: The nasopharynx, oropharynx and oral cavity are normal. The larynx, hypopharynx and thyroid gland are normal. A small well-defined round lesion is noted in the anterior aspect of the right parotid gland measuring 5 mm with a well-defined fat plane with the gland. The salivary submandibular glands are normal. Imaged portions of the paranasal sinuses and mastoid air cells are clear. Imaged portions of the brain and orbits are unremarkable. No pathologically enlarged lymph nodes are identified. Osseous structures are normal. The lung apices are clear. IMPRESSION: Oval-shaped well-defined 6 mm lesion in the right parotid gland which likely represents a paraparotid lymph node, if the suspicion for an intrapartoid lesion is still present, and MRI can complement this study. 12/30/2016 - - Read by: Brayan Rodriguez Dictated Date/time: 12/30/16 18:03 Electronically Signed by: Brayan Rodriguez 01/19/17 16:49 FINAL REPORT [facility] Vital Signs Vital Sign Value Date Comments Source Encounters Location Location Details Encounter Type Encounter Number Reason For Visit Attending Provider ADM Date DC Date Status Source [facility] [id number] Ulices Pedraza 12/30/2016 12/31/2016 [facility] Procedures Procedure Code Date Perfomer Comments Source Tendon repair by distal insertion [id number] [facility] Ho[facility] Trigger finger [id number] HARSH[facility] Hopper
--- OUTSIDE RECORDS SUMMARY | 2018-02-26 14:47 | XMS REPORT | Summary of Care ---
Author Author [facility] Out[facility] [place] Organization [facility] [place] Address Unknown Phone Unavailable Encounter HQ Encntr_alias(FIN) [id number] Date(s): 12/30/16 - 12/30/16 [facility] [place] [address] [place] [phone] Discharge Disposition: Home or Self Care Attending Physician: Ulices Pedraza MD Vital Signs No data available for this section Problem List Condition Effective Dates Status Health Status Informant Hypothyroidism(Confi Resolved rmed) Sleep Resolved apnea(Confirmed) Type 2 diabetes Resolved mellitus(Confirmed) Allergies, Adverse Reactions, Alerts Substance Reaction Severity Status morphine Active neomycin Active Medications No data available for this section Results No data available for this section Immunizations No data available for this section Procedures Procedure Date Related Diagnosis Body Site Tendon repair by distal insertion Trigger finger Social History No data available for this section Assessment and Plan No data available for this section
[2018-02-26 14:50] VITALS: BP 107/50
== END | disposition home or self-care (01) ==
LOC: OR 11:14
PROVIDERS: ATTEND Ophthalmology
DX: H25.11 Age-related nuclear cataract, right eye (principal); E03.9 Hypothyroidism, unspecified; G47.33 Obstructive sleep apnea (adult) (pediatric); E11.9 Type 2 diabetes mellitus without complications; Z79.84 Long term (current) use of oral hypoglycemic drugs; Z85.118 Personal history of other malignant neoplasm of bronchus and lung; Z85.3 Personal history of malignant neoplasm of breast; Z88.1 Allergy status to other antibiotic agents; Z88.3 Allergy status to other anti-infective agents; Z88.5 Allergy status to narcotic agent; Z88.8 Allergy status to other drugs, medicaments and biological substances; Z91.040 Latex allergy status
CPT/HCPCS: J2250; V2632

== ENCOUNTER → 2018-03-12 | Day surgery (SDC) | payer BC ==
[~2018-03-12] MED LIST changes: +PREDNISOLONE ACETATE 1% OPTH SUSP 5 ML BTL OP ONE
[2018-03-12 14:25] VITALS: BP 100/60
== END | disposition home or self-care (01) ==
LOC: OR 10:57
PROVIDERS: ATTEND Ophthalmology
DX: H25.12 Age-related nuclear cataract, left eye (principal); E03.9 Hypothyroidism, unspecified; E11.9 Type 2 diabetes mellitus without complications; Z79.84 Long term (current) use of oral hypoglycemic drugs; Z88.5 Allergy status to narcotic agent; Z88.8 Allergy status to other drugs, medicaments and biological substances; Z88.1 Allergy status to other antibiotic agents; Z88.3 Allergy status to other anti-infective agents; Z91.040 Latex allergy status; Z85.118 Personal history of other malignant neoplasm of bronchus and lung; Z85.3 Personal history of malignant neoplasm of breast; Z90.10 Acquired absence of unspecified breast and nipple
CPT/HCPCS: 66984; J2250; V2632